=== PATIENT | female | born 1955 | race Caucasian/White ===

== ENCOUNTER 2019-10-12 16:10 | Emergency (ER) | payer MEDICARE, SELFPAY ==
--- NOTE | ~2019-10-12 | XR_ITS ---
EXAMINATION: XR finger 5th RT min 2V EXAM DATE: 10/12/2019 16:40 INDICATION: Injury 2 weeks ago, persistent right 5th digit pain. TECHNIQUE: Right 5th finger frontal, lateral and oblique projections obtained and reviewed. There is no prior study for comparison. FINDINGS: There is an avulsed right 5th distal phalangeal dorsal plate with a few millimeters of dis traction, fracture fragment is on the proximal aspect of the distal interphalangeal joint and there i s flexion at the joint, evidence of extensor mechanism disruption. Closed, posttraumatic finding. IMPRESSION: Acute right 5th distal phalangeal dorsal plate avulsion, extensor mechanism disruption. Reviewed, dictated and finalized at location A.
[2019-10-12 16:30] VITALS: BP 149/75; PULSE 95; RESP 18; TEMP 36.7; O2SAT 96
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
== END 2019-10-12 17:22 | disposition home or self-care (01) ==
PROVIDERS: Emergency Provider Nurse Practitioner Family; PCP Physician Assistant
DX: S62.666A Nondisplaced fracture of distal phalanx of right little finger, initial encounter for closed fracture (principal); J45.909 Unspecified asthma, uncomplicated; Z87.891 Personal history of nicotine dependence; X58.XXXA Exposure to other specified factors, initial encounter
CPT/HCPCS: 29130; 73140; 99214; G0463

== ENCOUNTER 2020-04-13 09:49 | Outpatient (CLI) | payer MEDICARE, SELFPAY ==
--- NOTE | ~2020-04-13 | MM_ITS ---
EXAMINATION: MM screening ingrid BI w avtar HISTORY: Screening mammogram TECHNIQUE: Craniocaudal and mediolateral oblique 3-D tomosynthesis images were obtained and synthetic 2-D images were generated. CAD analysis was submitted and interpreted. COMPARISON: 03/28/2019, 03/22/2018, 03/05/2016 bilateral digital screening mammogram examinations BREAST PARENCHYMAL COMPOSITION: There are scattered areas of fibroglandular density. FINDINGS: Occasional bilateral benign circumscribed low-density opacity is consistent with benign int ramammary lymph nodes, stable since prior examinations occasional bilateral benign calcifications. Th ere is no evidence of suspicious mass, calcification, or architectural distortion to suggest malignan cy in either breast. There has been no suspicious interval change. IMPRESSION: 1. No mammographic evidence of malignancy. 2. Recommend routine screening mammography in one year. BI-RADS Category 2: Benign finding(s). Reviewed, dictated and finalized at location A. OR OSTEOPATHIC
== END 2020-04-13 09:50 | disposition home or self-care (01) ==
LOC: ANHIMG 09:53
PROVIDERS: PCP Physician Assistant; Visit Provider Obstetrics & Gynecology
DX: Z12.31 Encounter for screening mammogram for malignant neoplasm of breast (principal)
CPT/HCPCS: 77063; 77067

== ENCOUNTER 2021-05-01 08:42 | Outpatient (CLI) | payer MEDICARE, SELFPAY ==
--- NOTE | ~2021-05-01 | MM_ITS ---
EXAMINATION: MM screening ingrid BI w avtar HISTORY: Screening mammogram TECHNIQUE: Craniocaudal and mediolateral oblique 3-D tomosynthesis images were obtained and synthetic 2-D images were generated. CAD analysis was submitted and interpreted. COMPARISON: April 13, 2020, March 28, 2019, March 22, 2018 bilateral screening mammogram examin ations BREAST PARENCHYMAL COMPOSITION: The breasts are almost entirely fatty. FINDINGS: Stable benign appearing intramammary lymph nodes. There is no evidence of suspicious mass, calcification, or architectural distortion to suggest malignancy in either breast. There has been no suspicious interval change. IMPRESSION: 1. No mammographic evidence of malignancy. 2. Recommend routine screening mammography in one year. BI-RADS Category 1: Negative Reviewed, dictated and finalized at location A. GER SITE
== END 2021-05-01 08:43 | disposition home or self-care (01) ==
LOC: ANHIMG 08:44
PROVIDERS: PCP Physician Assistant; Visit Provider Obstetrics & Gynecology
DX: Z12.31 Encounter for screening mammogram for malignant neoplasm of breast (principal)
CPT/HCPCS: 77063; 77067

== ENCOUNTER 2021-07-14 11:40 | Emergency (ER) | payer MEDICARE, SELFPAY ==
--- NOTE | ~2021-07-14 | XR_ITS ---
EXAMINATION: XR foot RT min 3V DATE: 07/14/2021 11:57 INDICATION: Right foot pain TECHNIQUE: Dorsoplantar, lateral, and 2 oblique views of the right foot were obtained. COMPARISON: None. FINDINGS: There is soft tissue swelling of the fifth toe. A tiny heterotopic ossification is seen pro jecting medial to the proximal interphalangeal joint. There is mild osteoarthritis of many interphala ngeal joints. Posterior and plantar calcaneal enthesophytes are noted. IMPRESSION: 1. Soft tissue swelling of the fifth toe with tiny heterotopic ossification near the proximal interph alangeal joint, possible small chip fracture. Reviewed, dictated and finalized at location A. IMPRESSION: 1. Soft tissue swelling of the fifth toe with tiny heterotopic ossification philip r the proximal interphalangeal joint, possible small chip fracture.
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
[2021-07-14 11:47] VITALS: BP 132/101; PULSE 102; RESP 16; TEMP 36.9; O2SAT 99
== END 2021-07-14 12:25 | disposition home or self-care (01) ==
PROVIDERS: Emergency Provider Nurse Practitioner Family; PCP Physician Assistant
DX: S92.511A Displaced fracture of proximal phalanx of right lesser toe(s), initial encounter for closed fracture (principal); Z87.891 Personal history of nicotine dependence; W23.0XXA Caught, crushed, jammed, or pinched between moving objects, initial encounter; Y93.55 Activity, bike riding
CPT/HCPCS: 73630; 99214; G0463

== ENCOUNTER 2021-07-25 12:32 | Emergency (ER) | payer MEDICARE, SELFPAY ==
[2021-07-25 12:43] VITALS: BP 153/89; PULSE 88; RESP 16; TEMP 37.6; O2SAT 97
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
== END 2021-07-25 13:04 | disposition home or self-care (01) ==
PROVIDERS: Emergency Provider Nurse Practitioner Family; PCP Physician Assistant
DX: M85.671 Other cyst of bone, right ankle and foot (principal); Z87.891 Personal history of nicotine dependence; J45.909 Unspecified asthma, uncomplicated; Z90.89 Acquired absence of other organs
CPT/HCPCS: 99212; G0463

== ENCOUNTER 2021-10-02 08:42 | Outpatient (CLI) | payer MEDICARE, SELFPAY ==
--- NOTE | ~2021-10-02 | CT_ITS ---
EXAMINATION: CTA chest PE protocol DATE: 10/02/2021 09:21 INDICATION: Shortness of breath TECHNIQUE: Computed tomography angiography (CTA) of the chest was performed with 100 mL Omnipaque-350 intravenous contrast timed to evaluate the pulmonary arteries. Coronal maximum intensity projection 3D-reconstructions were created by the technologist. The dose-length product (DLP) was 818.81 mGy-cm. Automated exposure control and iterative reconstruction technique were employed. COMPARISON: 03/19/2018 FINDINGS: The pulmonary arteries are well-opacified. No pulmonary embolism is identified. There is mi ld atelectasis of the right middle lobe and lingula and dependently in the lower lobes. No pleural ef fusion or pneumothorax. No pathologically enlarged thoracic lymph nodes are identified. The heart siz e is normal. There are bridging osteophytes at multiple levels in the spine, consistent with diffuse idiopathic skeletal hyperostosis (DISH). IMPRESSION: 1. No pulmonary embolus identified. Mild atelectasis. Reviewed, dictated and finalized at location B.
[2021-10-02 09:13] LABS: Estimated Glomerular Filt Rate > 60
== END 2021-10-02 08:43 | disposition home or self-care (01) ==
PROVIDERS: PCP Physician Assistant; Visit Provider Physician Assistant
DX: R06.00 Dyspnea, unspecified (principal); J98.11 Atelectasis
CPT/HCPCS: 71275; Q9967

== ENCOUNTER 2022-06-18 07:50 | Outpatient (CLI) | payer MEDICARE, SELFPAY ==
--- NOTE | ~2022-06-18 | MM_ITS ---
EXAMINATION: MM screening ingrid BI w avtar HISTORY: Screening mammogram TECHNIQUE: Craniocaudal and mediolateral oblique 3-D tomosynthesis images were obtained and synthetic 2-D images were generated. CAD analysis was submitted and interpreted. COMPARISON: 05/01/2021, 04/13/2020, 03/28/2019 BREAST PARENCHYMAL COMPOSITION:The breasts are almost entirely fatty FINDINGS: Small bilateral intramammary lymph nodes are stable from prior exams. No suspicious mass, c alcification, or architectural distortion are identified in either breast to suggest malignancy. Ther e has been no suspicious interval change. IMPRESSION: No mammographic evidence of malignancy. Recommend routine screening mammography in one year. BI-RADS Category 2: Benign finding(s). Reviewed, dictated and finalized at location M.
== END 2022-06-18 07:51 | disposition home or self-care (01) ==
LOC: ANHIMG 07:53
PROVIDERS: PCP Physician Assistant; Visit Provider Obstetrics & Gynecology
DX: Z12.31 Encounter for screening mammogram for malignant neoplasm of breast (principal)
CPT/HCPCS: 77063; 77067

== ENCOUNTER → 2022-11-07 13:35 | Outpatient (CLI) | payer MEDICARE, SELFPAY ==
--- NOTE | ~2022-11-07 | CT_ITS ---
EXAMINATION: CT lung screening DATE: 11/07/2022 13:53 INDICATION: Personal history of nicotine dependence, prior smoker with 20 pack year history TECHNIQUE: Computed tomography (CT) of the chest was performed without intravenous contrast. The dose -length product (DLP) was 286.14 mGy-cm. Automated exposure control and iterative reconstruction tech [employer] were employed. COMPARISON: 03/19/2018 FINDINGS: There is mild emphysema. The lungs are free of acute opacities. No suspicious pulmonary nod ules are identified. There is mild atelectasis of the lingula and right middle lobe. No pleural effus ion or pneumothorax. No pathologically enlarged thoracic lymph nodes are identified. The heart size i s normal. There are bridging osteophytes at multiple levels in the spine, consistent with diffuse idi opathic skeletal hyperostosis (DISH). There is a small sliding hiatal hernia. IMPRESSION: 1. Lung-RADS category 1: Negative. Continue annual screening with noncontrast low-dose chest CT in 12 months. Reviewed, dictated and finalized at location B. IMPRESSION: 1. Lung-RADS category 1: Negative. Continue annual screening with noncontrast l ow-dose chest CT in 12 months.
== END ==
PROVIDERS: PCP Physician Assistant; Visit Provider Physician Assistant
DX: Z12.2 Encounter for screening for malignant neoplasm of respiratory organs (principal); Z87.891 Personal history of nicotine dependence
CPT/HCPCS: 71271

== ENCOUNTER 2023-05-25 10:56 | Emergency (ER) | payer MEDICARE, SELFPAY ==
--- NOTE | ~2023-05-25 | XR_ITS ---
Left foot Technique: AP, oblique, and lateral views were obtained. Clinical History: Bruising Findings: No acute fracture or dislocation is seen. Osseous alignment is anatomic. Joint spaces are p reserved without erosive or degenerative change. Soft tissues are unremarkable. Impression: Unremarkable left foot radiographs. Reviewed, dictated and finalized at [facility]. Impression: Unremarkable left foot radiographs.
--- NOTE | 2023-05-25 11:07 | ED.LOWEXIN ---
HPI - Extremity Injury (Lower) General Chief Complaint: Extremity Problem,Nontraumatic Stated Complaint: left foot/ankle/leg swollen Time Seen by Provider: 05/25/23 11:22 Source: patient and RN notes reviewed Mode of arrival: ambulatory Limitations: no limitations History of Present Illness HPI Narrative: 68 year old female presents concern for left ankle swelling, bruising. She denies any known injury or trauma. She reports she noticed swelling today when she was getting a pedicure. She denies any calf pain, swelling, redness, warmth. She denies pain at rest or with weight-bearing MD complaint: other (ankle swelling) Related Data Home Medications Medication Instructions Recorded Confirmed ipratropium 20 mcg-albuterol 100 1 puff inhalation BID 10/12/19 05/25/23 mcg/actuation mist for inhalation (Combivent Respimat) lovastatin 40 mg tablet 40 mg PO DAILY 10/12/19 05/25/23 budesonide-formoterol HFA 160 1 inh inhalation ONCE 11/13/21 05/25/23 mcg-4.5 mcg/actuation aerosol inhaler (Symbicort) calcium carb 300 mg-D3 20 mcg-mag 1 tablet PO DAILY 11/13/21 05/25/23 ox 25 mg-copy preparer 0.5 [id number] tablet (Caltrate-D3 Plus Minerals) Allergies Allergy/AdvReac Type Severity Reaction Status Date / Time No Known Allergies Allergy Unknown Uncoded 05/25/23 11:21 Review of Systems Review of Systems: CONSTITUTIONAL: Denies malaise, chills, sweats, or fever. CARDIOVASCULAR: Denies chest pain, palpitations, or edema. RESPIRATORY: Denies cough or dyspnea. SKIN: Denies rash or itching, redness MUSCULOSKELETAL: Reports left ankle swelling and bruising NEUROLOGIC: Denies numbness, weakness All systems reviewed & are unremarkable except as noted in HPI and below PMFSH Past Medical History Medical History Asthma Elevated TSH History of vaginal delivery x 2 Surgical History Surgical History H/O bilateral salpingectomy H/O: hysterectomy History of laparoscopy Hx of LASIK S/P partial thyroidectomy S/P partial thyroidectomy Family History Family History Sibling Family history of multiple sclerosis Father Patient's father is Social History Social History Smoking status: Former smoker Second hand tobacco smoke exposure: No Smoking end date: 04/10/12 Alcohol intake: current Lack of Transportation: No Lack of Food: Never True Current Housing: I Have Housing Concerned About Future Housing: No Difficulty Paying Gas/Electric Bills: No Difficulty Paying for Meds: No Currently Unemployed: No Education: Master's Degree or Higher Difficulty w/ Childcare or Family Care: No Comments At time of signature, agree with nursing past medical, surgical, social and family history. There is no relevant family history pertinent to the presenting complaint Exam Narrative: GENERAL: Well-appearing, well-nourished, and in no acute distress. HEAD: Normocephalic, atraumatic. EYES: PERRLA, conjunctivae clear NECK: Supple. CHEST: Speaks in full sentences. No respiratory distress. HEART: Regular rate and rhythm. Normal and equal peripheral pulses. EXTREMITIES: Left ankle, foot, digits have grossly normal strength and sensation, normal range of motion. 1+ pitting edema to the lateral ankle and foot, dependent ecchymosis noted to the lateral foot. 5/5 strength with ankle in digit flexion and extension. Normal sensation with sensitivity to light touch and pain. Malleolar tenderness. No open wounds, no skin tenting, no devitalized tissue or atrophy, no trophic changes, no obvious deformity, alignment normal, nearby joints and structures intact. Distal pulses palpable and equal bilaterally, skin warm, dry, pink. Capillary refill less than 3 seconds. SKIN: Warm, dry, n
[2023-05-25 11:10] VITALS: BP 152/82; PULSE 71; RESP 16; TEMP 37.3; O2SAT 98
[2023-05-25 11:25] VITALS: BP 152/82; PULSE 71; RESP 16; TEMP 37.3; O2SAT 98
== END 2023-05-25 12:09 | disposition short-term general hospital (02) ==
PROVIDERS: Emergency Provider Nurse Practitioner; PCP Physician Assistant
DX: R22.42 Localized swelling, mass and lump, left lower limb (principal); Z87.891 Personal history of nicotine dependence; J45.909 Unspecified asthma, uncomplicated
CPT/HCPCS: 73630; 99213; G0463

== ENCOUNTER 2023-05-25 12:18 | Emergency (ER) | payer MEDICARE, SELFPAY ==
--- NOTE | ~2023-05-25 | US_ITS ---
EXAMINATION: US venous doppler [facility] DATE: 05/25/2023 14:17 INDICATION: Left lower limb swelling TECHNIQUE: Grayscale ultrasound images without and with compression and Doppler ultrasound images of the left lower extremity veins were obtained. COMPARISON: None. FINDINGS: The visualized portions of left common femoral vein, profunda (deep) femoral vein, femoral vein, popl iteal vein, peroneal veins, posterior tibial veins, gastrocnemius vein and greater saphenous vein out flow are patent. IMPRESSION: 1. No deep venous thrombosis in the left lower limb. Reviewed, dictated and finalized at location A.
[2023-05-25 12:22] VITALS: BP 150/80; PULSE 79; RESP 18; TEMP 36.4; O2SAT 97
--- NOTE | 2023-05-25 14:46 | ED.EXTPRO ---
HPI - Extremity Problem General Chief complaint: Extremity Problem,Nontraumatic Stated complaint: r/o dvt Time Seen by Provider: 05/25/23 14:11 History of Present Illness HPI Narrative: Patient is a 68-year-old female who presents ER for concern of DVT in the left lower extremity. She went to get a pedicure today and noticed her left foot and leg was more swollen than the right side and she had new bruising below the lateral malleolus. She had x-rays performed urgent care that were negative and was referred here. Patient has no chest pain or shortness of breath. No known trauma despite the bruising. She was at [place] and may have taken more salt. She also helped a lady who tripped using her cane but does not remember injuring herself. Related Data Home Medications Medication Instructions Recorded Confirmed ipratropium 20 mcg-albuterol 100 1 puff inhalation BID 10/12/19 05/25/23 mcg/actuation mist for inhalation (Combivent Respimat) lovastatin 40 mg tablet 40 mg PO DAILY 10/12/19 05/25/23 budesonide-formoterol HFA 160 1 inh inhalation ONCE 11/13/21 05/25/23 mcg-4.5 mcg/actuation aerosol inhaler (Symbicort) calcium carb 300 mg-D3 20 mcg-mag 1 tablet PO DAILY 11/13/21 05/25/23 ox 25 mg-gyroscopic instrument mechanic 0.5 cm-mlyh-zdce tablet (Caltrate-D3 Plus Minerals) Allergies Allergy/AdvReac Type Severity Reaction Status Date / Time No Known Allergies Allergy Unknown Uncoded 05/25/23 14:14 Review of Systems Constitutional: Constitutional: Reports no additional constitutional complaints Cardiovascular: Cardiovascular: Reports no additional cardiovascular complaints Respiratory: Respiratory: Reports no additional respiratory complaints Musculoskeletal: Musculoskeletal: Denies arthralgias and Denies joint swelling Comments: ankle bruising PMFSH Past Medical History Medical History Asthma Elevated TSH History of vaginal delivery x 2 Surgical History Surgical History H/O bilateral salpingectomy H/O: hysterectomy History of laparoscopy Hx of LASIK S/P partial thyroidectomy S/P partial thyroidectomy Family History Family History Sibling Family history of multiple sclerosis Father Patient's father is Social History Social History Smoking status: Former smoker Second hand tobacco smoke exposure: No Smoking end date: 04/10/12 Alcohol intake: current Lack of Transportation: No Lack of Food: Never True Current Housing: I Have Housing Concerned About Future Housing: No Difficulty Paying Gas/Electric Bills: No Difficulty Paying for Meds: No Currently Unemployed: No Education: Master's Degree or Higher Difficulty w/ Childcare or Family Care: No Exam Narrative: GENERAL: Well-appearing, well-nourished, and in no acute distress. HEAD: Normocephalic, atraumatic. ENT: Mucous membranes moist. CHEST: Clear to auscultation. No respiratory distress. HEART: Regular rate and rhythm. Normal peripheral pulses. EXTREMITIES: Normal range of motion. No edema. No left ankle tenderness referred denies. SKIN: Warm, dry, no rash. Mild bruising inferior to the left lateral malleolus without tenderness. NEURO: Alert and oriented x3. PSYCH: Normal mood and affect. Course Course Emergency Course: Patient informed of ultrasound results. Discharge home with recommendations of RICE treatment. Vital Signs Vital signs: Vital Signs Temperature 97.6 F 05/25/23 12:22 Pulse Rate 79 05/25/23 12:22 Respiratory Rate 18 05/25/23 12:22 Blood Pressure 150/80 H 05/25/23 12:22 Pulse Oximetry 97 05/25/23 12:22 Temperature 97.6 F 05/25/23 12:22 Pulse Rate 79 05/25/23 12:22 Respiratory Rate
[2023-05-25 15:10] VITALS: BP 148/74; PULSE 74; RESP 18; TEMP 36.1; O2SAT 98
== END 2023-05-25 15:11 | disposition home or self-care (01) ==
PROVIDERS: Emergency Provider Emergency Medicine; PCP Physician Assistant
DX: M79.81 Nontraumatic hematoma of soft tissue (principal); J45.909 Unspecified asthma, uncomplicated; E89.0 Postprocedural hypothyroidism; Z90.79 Acquired absence of other genital organ(s); Z90.710 Acquired absence of both cervix and uterus; Z87.891 Personal history of nicotine dependence
CPT/HCPCS: 73630; 93971; 99284

== ENCOUNTER 2023-06-24 16:09 | Outpatient (CLI) | payer MEDICARE, SELFPAY ==
--- NOTE | ~2023-06-24 | MM_ITS ---
EXAMINATION: MM screening ingrid BI w avtar HISTORY: Screening TECHNIQUE: Craniocaudal and mediolateral oblique 3-D tomosynthesis images were obtained and synthetic 2-D images were generated. CAD analysis was submitted and interpreted. COMPARISON: Comparison to multiple prior studies sequentially, with oldest reviewed study dated 05/01. BREAST PARENCHYMAL COMPOSITION: Not dense: There are scattered areas of fibroglandular density. FINDINGS: There is no evidence of suspicious mass, calcification, or architectural distortion to sugg est malignancy in either breast. There has been no suspicious interval change. IMPRESSION: 1. No mammographic evidence of malignancy. 2. Recommend routine screening mammography in one year. BI-RADS Category 1: Negative Reviewed, dictated and finalized at location B.
== END 2023-06-24 16:10 | disposition home or self-care (01) ==
LOC: ANHIMG 16:11
PROVIDERS: PCP Physician Assistant; Visit Provider Obstetrics & Gynecology
DX: Z12.31 Encounter for screening mammogram for malignant neoplasm of breast (principal)
CPT/HCPCS: 77063; 77067

== ENCOUNTER 2023-09-22 07:32 | Outpatient (CLI) | payer MEDICARE, SELFPAY ==
--- NOTE | ~2023-09-22 | MR_ITS ---
Procedure: MR orbits face neck wo/w con Ordering provider: Queta Barnard, ODALIS History: . VISUAL DISTURBANCE . Comparison: CT head performed yesterday. Technique: MRI brain with contrast. MRI orbits utilizing thin slice axial and sagittal pre- and post contrast images per protocol. 20 mL MultiHance was given IV. FINDINGS: BRAIN: BONES: Normal. MAJOR INTRACRANIAL VESSELS: Normal flow void. CRANIAL NERVES VII AND VIII COMPLEXES: Grossly unremarkable. BRAIN PARENCHYMA AND CSF SPACES: The craniocervical junction and midline structures are normal. The b rainstem and cerebellum are normal. There is no evidence for acute or chronic intracranial hemorrhage . No extra axial fluid collections,. PARANASAL SINUSES: Bilateral ethmoid sinus disease. MASTOIDS: Bright signal in the medial aspect of the left mastoid air cells. SUPERFICIAL/SURROUNDING SOFT TISSUES: Normal. ORBITS: The optic globes are normal. The optic nerves and ocular muscles are normal in signal without abnormal enhancement. The orbital fat is normal. No orbital mass or abnormal enhancement. The optic nerve was not well demonstrated on the axial images on the T2-weighted images and in the T1 postcontr ast images most likely technical. IMPRESSION: No definite abnormality seen in the visualized brain and orbits. No abnormal enhancement seen in the optic nerves. Reviewed, dictated and finalized at location A. IMPRESSION: No definite abnormality seen in the visualized brain and orbits. No abnormal en hancement seen in the optic nerves.
--- NOTE | ~2023-09-22 | US_ITS ---
EXAMINATION: US carotid duplex BI DATE: 09/22/2023 09:32 INDICATION: Visual disturbance TECHNIQUE: Grayscale, color Doppler, and pulsed Doppler images of the cervical carotid arteries were obtained. The degree of vessel stenosis is placed in one of the following categories: normal, <50%, 5 0-69%, >=70% but less than near-occlusion, near-occlusion, or total occlusion. Note that percent sten osis relative to normal distal artery lumen diameter is indirectly measured from velocity measurement s as described by Houston, et al. Radiology 2003; 229:[id number]. COMPARISON: None. FINDINGS: RIGHT: The right common carotid artery (CCA) peak systolic velocity (PSV) is 50 cm/s. The right internal car otid artery (ICA) PSV is 49 cm/s. The right ICA end-diastolic velocity (EDV) is 12 cm/s. The right IC A/CCA PSV ratio is 1.0. Grayscale and color Doppler images demonstrate no evident atherosclerotic reji que or stenosis in the ICA. The external carotid artery (ECA) PSV is 74 cm/s. There is antegrade flow in the right vertebral artery. LEFT: The left CCA PSV is 58 cm/s. The left ICA PSV is 61 cm/s. The left ICA EDV is 25 cm/s. The left ICA/C CA PSV ratio is 1.1. Grayscale and color Doppler images demonstrate no evident plaque or stenosis in the ICA. The ECA PSV is 69 cm/s. There is antegrade flow in the left vertebral artery. IMPRESSION: 1. No evident atherosclerotic plaque or stenosis in the right internal carotid artery. 2. No evident atherosclerotic plaque or stenosis in the left internal carotid artery. Reviewed, dictated and finalized at location A. IMPRESSION: 1. No evident atherosclerotic plaque or stenosis in the right internal carotid artery. 2. No evident atherosclerotic plaque or stenosis in the left internal carotid a rtery.
--- NOTE | ~2023-09-22 | MR_ITS ---
MR brain/brain stem wo/w con Ordering provider: Queta Barnard, ODALIS History: . VISUAL DISTURBANCE . Comparison: None. Technique: MRI brain and internal auditory canals with and without contrast with thin slice coronal a nd sagittal images through the internal auditory canals was performed per protocol. 20 mL MultiHance was given IV. FINDINGS: BONES: Normal. CRANIOCERVICAL JUNCTION: normal. PITUITARY: Normal. MAJOR INTRACRANIAL VESSELS: Normal flow void. OPTIC NERVES AND CRANIAL NERVES VII AND VIII COMPLEXES: Grossly normal. BRAIN PARENCHYMA AND CSF SPACES: Mild nonspecific T2 white matter hyperintensities are seen in a vikram ateral periventricular and deep white matter distribution which are likely related to chronic ischemi c small vessel disease. Mild diffuse cortical atrophy. The brainstem and cerebellum are normal. No ac dianne or chronic intracranial hemorrhage. No extra axial fluid collections. Diffusion weighted and ADC mapping images reveal no recent ischemia. No midline shift or mass effect. No abnormal contrast enhan cement. PARANASAL SINUSES: Bilateral ethmoid sinus disease. SUPERFICIAL/SURROUNDING SOFT TISSUES: Normal. IACs: --MASTOIDS: Focal area of bright signal in the left mastoid air cells medially is seen which shows bright signal on T2 and dark signal on T1-weighted images with minimal postcontrast enhancement most likely an enhancing fluid which may be in the vestibular aqueduct area. Follow-up advised. --EXTERNAL AUDITORY CANALS AND MIDDLE EARS: Normal. --COCHLEA AND SEMICIRCULAR CANALS: Normal bilaterally. --EUSTACHIAN TUBES/FOSSAE OF ROSENMUELLER: Normal. --ABNORMAL ENHANCEMENT: None. IMPRESSION: 1. Few scattered T2 and FLAIR hyperintense signal areas which may be due to deep white matter ischem ic changes. 2. No acute intracranial abnormality. 3. Normal IAC bilaterally. 4. Small area of bright signal on T2-weighted images with dark signal on T1-weighted images and with postcontrast enhancement seen in the left mastoid air cells which may be related to the vestibular a queduct. Follow-up advised. Reviewed, dictated and finalized at location A. IMPRESSION: 1. Few scattered T2 and FLAIR hyperintense signal areas which may be due to de ep white matter ischemic changes. 2. No acute intracranial abnormality. 3. Normal IAC bilaterally. 4. Small area of bright signal on T2-weighted images with dark signal on T1-we ighted images and with postcontrast enhancement seen in the left mastoid air ce lls which may be related to the vestibular aqueduct. Follow-up advised.
== END 2023-09-22 07:33 | disposition home or self-care (01) ==
PROVIDERS: PCP Physician Assistant; Visit Provider Physician Assistant
DX: H53.9 Unspecified visual disturbance (principal)
CPT/HCPCS: 70543; 70553; 93880; A9577

== ENCOUNTER 2023-11-10 08:34 | Outpatient (CLI) | payer MEDICARE, SELFPAY ==
--- NOTE | ~2023-11-10 | CT_ITS ---
CT Scan of the Chest without Contrast: Clinical Indication: Lung cancer screening, nicotine dependence Technique: Contiguous sections were acquired throughout the chest without intravenous contrast. Dose reduction technique was used on this scan by utilizing automated exposure control and iterative recon struction technique. The dose-length product (DLP) was 223.12 mGy-cm. COMPARISON: 11/07/2022 Findings: There is no evidence of any significant mediastinal, hilar or axillary lymphadenopathy. The mediastin al soft tissues appear normal. There is no evidence of pleural or pericardial effusion. The lungs are clear, aside from mild right middle lobe atelectatic change. Images through the upper abdomen reveal no abnormalities. Impression: Lung RADS 1: Negative. 12 month follow-up screening CT advised. Reviewed, dictated and finalized at location . Impression: Lung RADS 1: Negative. 12 month follow-up screening CT advised.
== END 2023-11-10 08:35 | disposition home or self-care (01) ==
PROVIDERS: PCP Physician Assistant; Visit Provider Physician Assistant
DX: Z12.2 Encounter for screening for malignant neoplasm of respiratory organs (principal); Z87.891 Personal history of nicotine dependence
CPT/HCPCS: 71271

== ENCOUNTER 2024-03-11 11:27 | Emergency (ER) | payer MEDICARE, SELFPAY ==
[2024-03-11 11:37] VITALS: BP 140/70; PULSE 78; RESP 16; TEMP 36.3; O2SAT 98
--- NOTE | 2024-03-11 11:37 | ED_ITS ---
HPI - URI/Sore Throat General Chief Complaint: Upper Respiratory Infection Stated Complaint: sore throat/ear pain Time Seen by Provider: 03/11/24 12:26 Source: patient, RN notes reviewed and old records reviewed Mode of arrival: ambulatory Limitations: no limitations History of Present Illness HPI Narrative: Patient presents with complaints of runny nose and sore throat. She reports that symptoms have been present for 3 or 4 days, started with sore throat. Says that this has just got worse each day. This morning awakened with right ear pain. She denies any fever, chills, sweats. Denies any injury or trauma. Has been taking obps-uhs-hkpdgal medications for her symptoms with moderate relief. Related Data Home Medications ?Medication ?Instructions ?Recorded ?Confirmed ?Last Taken ?Type ipratropium 20 mcg-albuterol 100 1 puff inhalation BID 10/12/19 05/25/23 Unknown History mcg/actuation mist for inhalation (Combivent Respimat) lovastatin 40 mg tablet 40 mg PO DAILY 10/12/19 05/25/23 Unknown History budesonide-formoterol HFA 160 1 inh inhalation ONCE 11/13/21 05/25/23 Unknown History mcg-4.5 mcg/actuation aerosol inhaler (Symbicort) calcium 300 mg-D3 20 mcg-magnesium 1 tablet PO DAILY 11/13/21 05/25/23 Unknown History 25 mg-coppr 0.5 so-flxc-llkj tablet (Caltrate-D3 Plus Minerals) Allergies Allergy/AdvReac Type Severity Reaction Status Date / Time No Known Allergies Allergy Unknown Uncoded 03/11/24 11:40 Review of Systems Review of Systems: All systems reviewed & are unremarkable except as noted in HPI and below Constitutional: Constitutional: Reports no additional constitutional complaints ENT: Reports system reviewed and no additional complaints, except as documented, Reports otalgia, Reports nasal discharge and Reports sore throat Cardiovascular: Cardiovascular: Reports no additional cardiovascular complaints Respiratory: Respiratory: Reports no additional respiratory complaints Gastrointestinal: Gastrointestinal: Reports no additional gastrointestinal complaints PMFSH Past Medical History Medical History Asthma Elevated TSH History of vaginal delivery x 2 Surgical History Surgical History S/P partial thyroidectomy S/P partial thyroidectomy History of laparoscopy H/O bilateral salpingectomy Hx of LASIK H/O: hysterectomy Family History Family History Sibling Family history of multiple sclerosis Father Patient's father is Social History Social History Smoking status: Former smoker Second hand tobacco smoke exposure: No Smoking end date: 04/10/12 Alcohol intake: current Lack of Transportation: No Lack of Food: Never True Current Housing: I Have Housing Concerned About Future Housing: No Difficulty Paying Gas/Electric Bills: No Difficulty Paying for Meds: No Currently Unemployed: No Education: Master's Degree or Higher Difficulty w/ Childcare or Family Care: No Comments At the time of my signature, I reviewed and agree with the nursing past medical, surgical, social, and family history. There is no relevant family history pertinent to the patient complaint. Exam Const: General: cooperative, no acute distress, alert and awake Orientation/consciousness: oriented to person, oriented to place and oriented to time HENMT: Head: normal to inspection Ears: TM normal on the left and TM abnormal erythematous and with loss of landmarks Mouth: Yes moist mucous membranes Throat: posterior oropharynx abnormal erythema Resp: Effort & Inspection: normal respiratory effort and able to speak in complete sentences Auscultation: clear to auscultation bilaterally, no crackles, no rales, no rhonchi and no wheezes Cardio: Palpation: normal PMI Rate: regular rate Rhythm: regular rhythm Heart sounds: S1 normal heart sound present and S2 normal heart sound present Neuro: General: oriented to person, oriented to place and oriented to time Cranial nerves: Yes CN's II-XII intact bilaterally Psych: Appearance: grossly normal Thought process: Normal thought process present Insight: Good insight present (Psych) Judgement: Good judgement present (Psych) Course Course Level of Care: Express Care Visit Vital Signs Vital signs: Reviewed MDM - URI/Sore Throat MDM Narrative Medical decision making narrative: Negative strep, culture pending. Exam consistent with otitis media, treat with p.o. antibiotics. Patient is nontoxic appearing, stable for discharge home. Discharge instructions reviewed with patient, as well as provided in writing per nursing staff. The instructions also include specific and strict return/GO TO THE ER as well as f/u information. All questions have been answered, and the patient deny any further questions with discharge and discharge plan. Some parts of this dictation were generated by voice recognition software and may contain typographical and/or grammatical inaccuracies. Differential Diagnosis Differential diagnosis: Likely upper respiratory infection, otitis media, sinusitis, viral infection, bronchitis and influenza Medical Records Attestation: I reviewed the patient's medical records. Lab Data Attestation: I reviewed the patient's lab results. Discharge Plan Discharge Clinical Impression: Otitis media Qualifiers: Otitis media type: suppurative Chronicity: acute Laterality: right Recurrence: not specified as recurrent Spontaneous tympanic membrane rupture: without spontaneous rupture Qualified Code(s): H66.001 - Acute suppurative otitis media without spontaneous rupture of ear drum, right ear Patient Disposition: Home, Self-Care Condition: Stable Instructions: Antibiotic Form, Ear Infection (ED) Additional Instructions: Take medication as prescribed. Follow with primary care provider. Emergency department for new or worse symptoms Patient Language: Citizen Of [place] Prescriptions: New amoxicillin-pot clavulanate 875-125 mg tablet 1 tablet PO Q12H Qty: 20 0RF No Action lovastatin 40 mg tablet 40 mg PO DAILY Combivent Respimat 20-100 mcg/actuation mist 1 puff INHALATION BID budesonide-formoterol [Symbicort] 160-4.5 mcg/actuation HFA aerosol inhaler 1 inh inhalation ONCE Caltrate-D3 Plus Minerals 300 mg-800 unit -25 mg-0.5 mg tablet 1 tablet PO DAILY Follow-up/Referrals: Evon,ODALIS Birch [Primary Care Provider] - 1 Week Time of Disposition: 12:35
== END 2024-03-11 12:40 | disposition home or self-care (01) ==
PROVIDERS: Emergency Provider Nurse Practitioner Family; PCP Physician Assistant
DX: H66.001 Acute suppurative otitis media without spontaneous rupture of ear drum, right ear (principal); Z87.891 Personal history of nicotine dependence; J45.909 Unspecified asthma, uncomplicated; Z90.89 Acquired absence of other organs
CPT/HCPCS: 87081; 99213; G0463

== ENCOUNTER 2024-07-25 08:02 | Outpatient (CLI) | payer MEDICARE, SELFPAY ==
--- NOTE | ~2024-07-25 | MM_ITS ---
EXAMINATION: MM screening ingrid BI w avtar HISTORY: Screening TECHNIQUE: Craniocaudal and mediolateral oblique 3-D tomosynthesis images were obtained and synthetic 2-D images were generated. CAD analysis was submitted and interpreted. COMPARISON: Comparison to multiple prior studies sequentially, with oldest reviewed study dated 03/22. BREAST PARENCHYMAL COMPOSITION: Not Dense: The breasts are almost entirely fatty. FINDINGS: There is no evidence of suspicious mass, calcification, or architectural distortion to sugg est malignancy in either breast. There has been no suspicious interval change. IMPRESSION: 1. No mammographic evidence of malignancy. 2. Recommend routine screening mammography in one year. BI-RADS Category 1: Negative Reviewed, dictated and finalized at location B.
--- OUTSIDE RECORDS SUMMARY | 2024-07-25 08:08 | XMS_ITS | Referral Summary ---
Author Organization [facility] [address] Address [address] [place] [address] Care Team Providers Care Saw Offbearer Name Role Phone AlonzozehraQueta Primary Care Pr ovider Allergies No known active allergies Medications omeprazole (PriLOSEC) 20 mg capsuleIndicati ons:heartburn Take 1 capsule (20 mg total) by mouth as needed 6 9 Active ipratropium-alb uterol (COMBIVENT RESPIMAT) 20-100 mcg/actuation inhalerIndicati ons:asthma Inhale 1 puff 4 (four) times a day as needed Active calcium carbonate/vitam in D3 (CALCIUM 600 + D,3, ORAL)Indication s:supplement Take 1 tablet by mouth nightly Active nystatin powder Apply 1 application topically as needed for rash Active docusate sodium (COLACE) 100 mg capsuleIndicati ons:constipatio n Take 1 capsule (100 mg total) by mouth 2 (two) times a day as needed for constipation 15 capsule 0 Active Additional Information Patient not taking.Reported on 11/24/2023 fluticasone propionate (FLONASE) 50 mcg/actuation nasal spray Administer 1 spray into each nostril daily 1 each 11 4 Active atorvastatin (LIPITOR) 40 mg tablet Take 1 tablet (40 mg total) by mouth daily Active multivitamin with iron tablet Take 1 tablet by mouth daily Active Lactobacillus rhamnosus GG (CULTURELLE) 10 billion cell capsule Take 1 capsule by mouth daily Active Active Problems Problem Noted Date Diagnosed Date Thyroid nodule 09/01/2018 Overview (04/28/2019): PROCEDURE PERFORMED 04/11/2019 [place] Left hemithyroidectomy. Social History Tobacco Use Types Packs/Day Years Used Date Smoking Tobacco: Former Cigarettes 0.5 48 1 969 - 2017 E-cigarettes Smokeless Tobacco: Never Tobacco Cessation:Counseling Given: Not Answered Comments:stopped cigarettes in 2012, e-cigarettes in 2017, per pt Alcohol Use Standard Drinks/Week Comments Yes 0 (1 standard drink = 0.6 oz pur e alcohol) AUDIT-C Answer Date Recorded Frequency of Alcohol Consumption 2-3 times a wee k 04/05/2019 Average Number of Drinks 5 or 6 020 Frequency of Binge Drinking Not on file 03/10 Comments No Sex and Gender Information Value Date Recorded Sex Assigned at Not on file Legal Sex Female 7:58 AM 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 Gender Identity Not on file Sexual Orientation Not on file Last Filed Vital Signs Vital Sign Reading Time Taken Comments Blood Pressure 115/65 04/11/2019 3:10 PM MARKET REPORTER Pulse 81 04/11/2019 3:10 PM MARKET REPORTER Temperature 36.1 C (97 F) 04/11/2019 3:40 PM MARKET REPORTER Respiratory Rate 15 04/11/2019 3:10 PM MARKET REPORTER Oxygen Saturation 96% 04/11/2019 3:10 PM MARKET REPORTER Inhaled Oxygen Concentration - - Weight 111.1 kg (245 lb) 11/06/2023 8:37 AM CDT Height 162.6 cm (5' 4 ) 11/06/2023 8:37 AM CDT Body Mass Index 42.05 11/06/2023 8:37 AM CDT Plan of Treatment Not on file Insurance [facility] MEDICARE MEDICARE ChatStat [facility] ChatStat OPEN ACCESS [facility] MEDICARE ADVANTAGE [facility] MEDICARE Care Teams Saw Offbearer Relationship Specialty Start Date End Date Queta Barnard PA PCP - General Physician Sock And Stocking Ironer 04/15/18
--- OUTSIDE RECORDS SUMMARY | 2024-07-25 08:08 | XMS_ITS | Clinical Summary ---
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 Gender Identity Not on file Sexual Orientation Not on file Plan of Treatment Health Maintenance Due Date Last Done Comments Colorectal Cancer Screening Colonoscopy (10 Years) 1953 Hepatitis C 1971 DTaP, Tdap and Td Vaccines ( 1 - Tdap) 01/22/1972 Mammogram Screening 1993 Pneumococcal Vaccine: 50+ Ye ars (1 of 1 - PCV) 2003 Zoster Vaccines (1 of 2) 2003 Dexa Scan (General) 2018 COVID-19 Vaccine (2 - 2023-2 5 season) 2023 05/14/2020 RSV Immunization or 60+ Years (1 - 1-dose 75+ series) 01/22/2028 Meningococcal B Vaccine Aged Out No l onger eligible based on patient's age to complete this topic Meningococcal Vaccine Aged Out No reyna oleg eligible based on patient's age to complete this topic RSV Immunizations Under 20 Months Aged Out No longer eligible based on patient's age to complete this topic
--- OUTSIDE RECORDS SUMMARY | 2024-07-25 08:08 | XMS_ITS | Clinical Summary ---
Author Organization [facility] [place] [address] Address [address] [place] [address] Care Team Providers Care Supervisor Paint Department Name Role Phone AlonzozehraQueta Primary [facility] Pr [...] (04/28/2019): PROCEDURE PERFORMED 04/11/2019 [place] Left hemithyroidectomy. Surgical History Surgery Date Site/Laterality Comments HYSTERECTOMY OOPHORECTOMY BLADDER AUGMENTATION ADENOIDECTOMY 1956 COLONOSCOPY 12/20/2018 SINUS SURGERY 1979's LASIK 10/02/2015 Left OS only - for distance Medical History Medical History Date Comments Asthma mild Family History Medical History Relation Name Comments Cancer Father Gallito Luna Cancer Maternal Grandfather Enrique Dwyer Diabetes Sister Jenna Chase Relation Name Status Comments Father Gallito Luna Maternal Grandfather Enrique Dwyer Sister Jenna Chase Social History Tobacco Use Types Packs/Day Years Used Date Smoking Tobacco: Former Cigarettes 0.5 48 1 969 - 2017 E-cigarettes Smokeless Tobacco: Never Tobacco Cessation:Counseling Given: Not Answered Comments:stopped cigarettes in 2012, e-cigarettes in 2016, per pt Alcohol Use Standard Drinks/Week Comments [...] on file Legal Sex Female 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 Gender Identity Not on file Sexual Orientation Not on file Obstetrics History Last Filed Vital Signs Vital Sign Reading Time Taken Comments Blood Pressure 115/65 04/11/2019 3:10 PM FILLER OPERATOR Pulse 81 04/11/2019 3:10 PM FILLER OPERATOR Temperature 36.1 C (97 F) 04/11/2019 3:40 PM FILLER OPERATOR Respiratory Rate 15 04/11/2019 3:10 PM FILLER OPERATOR Oxygen Saturation 96% 04/11/2019 3:10 PM FILLER OPERATOR Inhaled Oxygen Concentration - - Weight 111.1 kg (245 lb) 11/06/2023 8:37 AM CDT Height 162.6 cm (5' 4 ) 11/06/2023 8:37 AM CDT Body Mass Index 42.05 11/06/2023 8:37 AM CDT Plan of Treatment Health Maintenance Due Date Last Done Comments Breast Cancer Screening-Mammogram 1953 Colon Cancer Screening-Colonoscopy 1953 Depression Screening 1953 Fall Risk Assessment 1953 Hepatitis C Screening 1953 Osteoporosis Screening-Bone Density Scan 1953 Hepatitis B Screening 1971 Lung Cancer Screening 2003 Well Visit 65+ 2018 Pneumococcal vaccine 65+ (2 of 2 - PPSV23) 01/30/2021 12/05/2020, 03/22/2018 Covid-19 Vaccine (5 - 2023-2 5 season) 2023 01/22/2022, 10/09/2021, 01/16/2021, Additional history exists Influenza Vaccine (Season Ended) 2024 12/31/2022, 12/18/2021, 12/05/2020, Additional history exists DTaP/Tdap/Td Vaccine (2 - Td or Tdap) 04/07/2027 04/07/2017 Zoster Vaccine Completed 03/21/2020, 11/08, 03/09/[address] [place] [address] MEDICARE MEDICARE [employer] [facility] [employer] [facility] Skin OPEN ACCESS UHC MEDICARE ADVANTAGE AET MEDICARE Care Teams Supervisor Paint Department Relationship Specialty Start Date End Date Queta Barnard PA PCP - General Physician Medical Health Researcher 04/15/18
--- OUTSIDE RECORDS SUMMARY | 2024-07-25 08:09 | XMS_ITS | Data Portability ---
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 Role Phone QUETA MOSHER Primary Care Provider Unavailab le Assessment Encounter Date Assessment Date Assessment LastModified by Organization Details LastModified Time 04/06/2024 04/06/2024July mammogram planned at [place] Not available 04/06/2024 09:44:39 Plan of Treatment Reminders Order Date Submit Date Provider Last Modified By Organization Details Last Modified Time Details Appointments ANY 15 2024 08:00A M ALECIA Juárez Not available Not available Not available Lab CBC w/ auto diff 2024 025 [facility], [address], [place], [address], 04/07/2024 07:09:02 hepatic function panel, serum 2024 025 MONICA [facility], [address], [place], [address], 04/07/2024 07:08:59 BMP, serum or plasma 2024 025 MONICA [facility], [address], [place], [address], 04/07/2024 07:09:00 HbA1c (hemoglob in A1c), blood 2024 025 MONICA [facility], [address], [place], [address], 04/07/2024 07:09:01 TSH + free T4, serum 2024 025 MONICA [facility], [address], [place], [address], 04/07/2024 07:08:57 lipid panel, serum 2024 025 MONICA [facility], [address], [place], [address], 04/07/2024 07:08:58 erythrocy te sedimenta tion rate by westergre n method 2023 024 MONICA [facility], [address], [place], [address], 09/05/2023 08:23:27 C reactive protein, QN, serum or plasma 2023 024 MONICA [facility], [address], [place], [address], 09/05/2023 08:23:27 HbA1c (hemoglob in A1c), blood 2023 024 MONICA [facility], [address], [place], [address], 09/05/2023 08:23:26 CBC w/ auto diff 2023 024 MONICA [facility], [address], [place], [address], 09/05/2023 08:23:26 hepatic function panel, serum 2023 024 MONICA [facility] [address], [place], [address], 09/05/2023 08:23:25 BMP, serum or plasma 2023 024 MONICA [facility] [address], [place], [address], 09/05/2023 08:23:25 TSH + free T4, serum 2023 024 [place] [facility], [address], [place], [address], 09/05/2023 08:23:24 lipid panel, serum 2023 024 [place] [facility], [address], [place], [address], 09/05/2023 08:23:24 Referral otolaryng ologist referral 2024 025 [facility], [address], [place], [address], 05/27/2024 11:14:02 Procedures colonosco py procedure (PROC) [address] [facility], [address], [address], [place], [address], 04/06/2024 09:49:58 Surgeries None recorded. Imaging US, duplex, carotid artery 2023 024 [facility], [address], [place], [address], 09/22/2023 12:29:59 MRI, brain + orbits, w/wo contrast - approval info on this fax [address] [facility] [address] [facility], [address], [place], [address], 09/23/2023 11:06:16 LDCT, chest, for lung cancer screening 2023 024 [facility], [address], [place], [address], 11/10/2023 13:45:38 Medication Orders None recorded. Patient TargetsNo targets recorded. 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 Dysfunction of bilateral eustachian tubes Referring Physician: Queta Mosher, Internal Medicine, Encounter Date: 04/06/2024 Results Created Date Observation Date Name Description Value Unit Range Abnormal Flag Note LastModifiedBy Organization Detail LastModifiedTime 09/04/1909/05/2023 TSH+F REE T4 TSH 4.270 uIU/m L 0.450- 4.500 Not Available [facility] ([facility]) [address] [place], [address], 09/05/2023 08:23:24 09/04/19 24 09/05/2023 TSH+F REE T4 T4,free(dire ct) 1.15 NG/dL 0.82-1 .77 Not Available [facility] ([facility]) [address] [place], [address], 09/05/2023 08:23:24 09/04/19 24 09/05/2023 LIPID PANEL cholesterol, total 203 mg/dL 100-19 9 above high normal Not Available [facility] ([facility]) [address] [place], [address], 09/05/2023 08:23:24 09/04/19 24 09/05/2023 LIPID PANEL triglyceride s 133 mg/dL 0-149 Not Available [facility]) [address] [place], [address], 09/05/2023 08:23:24 09/04/19 24 09/05/2023 LIPID PANEL HDL cholesterol 47 mg/dL >39 Not Available [facility]) [address] [place], [address], 09/05/2023 08:23:24 09/04/19 24 09/05/2023 LIPID PANEL VLDL cholesterol elan 24 mg/dL 5-40 Not Available [facility] ([facility]) [address] [facility] [place], [address], 09/05/2023 08:23:24 09/04/19 24 09/05/2023 LIPID PANEL LDL chol calc ([facility]) 132 mg/dL 0-99 above high normal Not Available [facility] ([facility]) [address] [facility] [place], [address], 09/05/2023 08:23:24 09/04/19 24 09/05/2023 HEPAT IC FUNCT ION PANEL (7) protein, total 7.2 g/dL 6.0-8. 5 Not Available [facility] ([facility]) [address] [facility] [place], [address], 09/05/2023 08:23:25 09/04/19 24 09/05/2023 HEPAT IC FUNCT ION PANEL (7) albumin 4.6 g/dL 3.9-4. 9 Not Available [facility] ([facility]) [address] [facility] [place], [address], 09/05/2023 08:23:25 09/04/19 24 09/05/2023 HEPAT IC FUNCT ION PANEL (7) bilirubin, total 0.6 mg/dL 0.0-1. 2 Not Available [facility] ([facility]) [address] [facility] [place], [address], 09/05/2023 08:23:25 09/04/19 24 09/05/2023 HEPAT IC FUNCT ION PANEL (7) bilirubin, direct 0.15 mg/dL 0.00-0 .40 Not Available [facility] ([facility]) [address] [place], [address], 09/05/2023 08:23:25 09/04/19 24 09/05/2023 HEPAT IC FUNCT ION PANEL (7) alkaline phosphatase 96 IU/L 44-121 Not Available [facility]) [address] [facility] [place], [address], 09/05/2023 08:23:25 09/04/19 24 09/05/2023 HEPAT IC FUNCT ION PANEL (7) AST (SGOT) 26 IU/L 0-40 Not Available [facility] ([facility]) [address] [place], [address], 09/05/2023 08:23:25 09/04/19 24 09/05/2023 HEPAT IC FUNCT ION PANEL (7) ALT (SGPT) 22 IU/L 0-32 Not Available [facility] ([facility]) [address] [facility] [place], [address], 09/05/2023 08:23:25 09/04/19 24 09/05/2023 BMP7+ EGFR glucose 117 mg/dL 70-99 above high normal Not Available [facility] ([facility]) [address] [facility] [place], [address], 09/05/2023 08:23:25 09/04/19 24 09/05/2023 BMP7+ EGFR BUN 17 mg/dL 8-27 Not Available [facility] ([facility]) [address] [facility] [place], [address], 09/05/2023 08:23:25 09/04/19 24 09/05/2023 BMP7+ EGFR creatinine 0.95 mg/dL 0.57-1 .00 Not Available [facility] ([facility]) [address] [facility] [place], [address], 09/05/2023 08:23:25 09/04/19 24 09/05/2023 BMP7+ EGFR eGFR 64 mL/mi n/1.7 3 >59 Not Available [facility] ([facility]) [address] [facility] [place], [address], 09/05/2023 08:23:25 09/04/19 24 09/05/2023 BMP7+ EGFR sodium 141 mmol/ L 134-14 4 Not Available [facility] ([facility]) [address] [place], [address], 09/05/2023 08:23:25 09/04/19 24 09/05/2023 BMP7+ EGFR potassium 4.5 mmol/ L 3.5-5. 2 Not Available [facility] ([facility]) [address] [facility], [place], [address], 09/05/2023 08:23:25 09/04/19 24 09/05/2023 BMP7+ EGFR chloride 101 mmol/ L 96-106 Not Available [facility] ([facility]) [address] [facility], [place], [address], 09/05/2023 08:23:25 09/04/19 24 09/05/2023 BMP7+ EGFR carbon dioxide, total 25 mmol/ L 20- Not Available [facility] ([facility]) [address] [facility], [place], [address], 09/05/2023 08:23:25 09/04/19 24 09/05/2023 HEMOG LOBIN A1C hemoglobin A1C 6.5 % 4.8-5. 6 above high normal Predi abete s: 5.7 - 6.4 Diabe nae: >6.4 Glyce anitha contr ol for adult s with diabe nae: <7.0 Not Available [facility] ([facility]) [address] [facility], [place], [address], 09/05/2023 08:23:26 09/04/19 24 09/05/2023 CBC WITH DIFFE RENTI AL/PL ATELE T WBC 8.2 x10e3 /uL 3.4-10 .8 Not Available [facility] ([facility]) [address] [place], [address], 09/05/2023 08:23:26 09/04/19 24 09/05/2023 CBC WITH DIFFE RENTI AL/PL ATELE T RBC 5.11 x10e6 /uL 3.77-5 .28 Not Available [facility] ([facility]) [address] [facility], [place], [address], 09/05/2023 08:23:26 09/04/19 24 09/05/2023 CBC WITH DIFFE RENTI AL/PL ATELE T hemoglobin 14.5 g/dL 11.1-1 5.9 Not Available [facility] ([facility]) [address] [facility], [place], [address], 09/05/2023 08:23:26 09/04/19 24 09/05/2023 CBC WITH DIFFE RENTI AL/PL ATELE T hematocrit 44.0 % 34.0-4 6.6 Not Available [facility] ([facility]) [address] [facility], [place], [address], 09/05/2023 08:23:26 09/04/19 24 09/05/2023 CBC WITH DIFFE RENTI AL/PL ATELE T MCV 86 fL 79-97 Not Available [facility] ([facility]) [address] [place], [address], 09/05/2023 08:23:26 09/04/19 24 09/05/2023 CBC WITH DIFFE RENTI AL/PL ATELE T MCH 28.4 pg 26.6-3 3.0 Not Available [facility] ([facility]) [address] [place], [address], 09/05/2023 08:23:26 09/04/19 24 09/05/2023 CBC WITH DIFFE RENTI AL/PL ATELE T MCHC 33.0 g/dL 31.5-3 5.7 Not Available [facility] ([facility]) [address] [place], [address], 09/05/2023 08:23:26 09/04/19 24 09/05/2023 CBC WITH DIFFE RENTI AL/PL ATELE T RDW 12.8 % 11.7-1 5.4 Not Available [facility] ([facility]) [address] [facility], [place], [address], 09/05/2023 08:23:26 09/04/19 24 09/05/2023 CBC WITH DIFFE RENTI AL/PL ATELE T platelets 251 x10e3 /uL 150-45 0 Not Available [facility] ([facility]) [address] [facility], [place], [address], 09/05/2023 08:23:26 09/04/19 24 09/05/2023 CBC WITH DIFFE RENTI AL/PL ATELE T neutrophils 64 % notest ab. Not Available [facility] ([facility]) [address] [facility], [place], [address], 09/05/2023 08:23:26 09/04/19 24 09/05/2023 CBC WITH DIFFE RENTI AL/PL ATELE T lymphs 28 % notest ab. Not Available [facility] ([facility]) [address] [facility], [place], [address], 09/05/2023 08:23:26 09/04/19 24 09/05/2023 CBC WITH DIFFE RENTI AL/PL ATELE T monocytes 6 % notest ab. Not Available [facility] ([facility]) [address] [facility], [place], [address], 09/05/2023 08:23:26 09/04/19 24 09/05/2023 CBC WITH DIFFE RENTI AL/PL ATELE T eos 1 % notest ab. Not Available [facility] ([facility]) [address] [facility], [place], [address], 09/05/2023 08:23:26 09/04/19 24 09/05/2023 CBC WITH DIFFE RENTI AL/PL ATELE T basos 1 % notest ab. Not Available [facility] ([facility]) [address] [facility], [place], [address], 09/05/2023 08:23:26 09/04/19 24 09/05/2023 CBC WITH DIFFE RENTI AL/PL ATELE T neutrophils (absolute) 5.2 x10e3 /uL 1.4-7. 0 Not Available [facility] ([facility]) [address] [facility], [place], [address], 09/05/2023 08:23:26 09/04/19 24 09/05/2023 CBC WITH DIFFE RENTI AL/PL ATELE T lymphs (absolute) 2.3 x10e3 /uL 0.7-3. 1 Not Available [facility] ([facility]) [address] [facility], [place], [address], 09/05/2023 08:23:26 09/04/19 24 09/05/2023 CBC WITH DIFFE RENTI AL/PL ATELE T monocytes(ab solute) 0.5 x10e3 /uL 0.1-0. 9 Not Available [facility] ([facility]) [address] [facility], [place], [address], 09/05/2023 08:23:26 09/04/19 24 09/05/2023 CBC WITH DIFFE RENTI AL/PL ATELE T eos (absolute) 0.1 x10e3 /uL 0.0-0. 4 Not Available [facility] ([facility]) [address] [place], [address], 09/05/2023 08:23:26 09/04/19 24 09/05/2023 CBC WITH DIFFE RENTI AL/PL ATELE T baso (absolute) 0.1 x10e3 /uL 0.0-0. 2 Not Available [facility] ([facility]) [address] [place], [address], 09/05/2023 08:23:26 09/04/19 24 09/05/2023 CBC WITH DIFFE RENTI AL/PL ATELE T immature granulocytes 0 % notest ab. Not Available [facility] ([facility]) [address] [place], [address], 09/05/2023 08:23:26 09/04/19 24 09/05/2023 CBC WITH DIFFE RENTI AL/PL ATELE T immature grans (abs) 0.0 x10e3 /uL 0.0-0. 1 Not Available [facility] ([facility]) [address] [facility], [place], [address], 09/05/2023 08:23:26 09/04/19 24 09/05/2023 SEDIM ENTAT ION RATE- WESTE RGREN sedimentatio n rate-westerg catarina 6 mm/HR 0-40 Not Available [facility] ([facility]) [address] [place], [address], 09/05/2023 08:23:27 09/04/19 24 09/05/2023 C-DEEPTHI CTIVE PROTE IN, QUANT C-reactive protein, quant 1 mg/L 0-10 Not Available [facility] ([facility]) [address] [place], [address], 09/05/2023 08:23:27 04/06/1904/07/2024 TSH+F REE T4 TSH 4.410 uIU/m L 0.450- 4.500 Not Available [facility] ([facility]) [address] [place], [address], 04/07/2024 07:08:57 04/06/1904/07/2024 TSH+F REE T4 T4,free(dire ct) 1.08 NG/dL 0.82-1 .77 Not Available [facility] ([facility]) [address] [place], [address], 04/07/2024 07:08:57 04/06/19 25 04/07/2024 LIPID PANEL cholesterol, total 148 mg/dL 100-19 9 Not Available [facility] ([facility]) [address] [place], [address], 04/07/2024 07:08:58 04/06/19 25 04/07/2024 LIPID PANEL triglyceride s 83 mg/dL 0-149 Not Available [facility] ([facility]) [address] [place], [address], 04/07/2024 07:08:58 04/06/19 25 04/07/2024 LIPID PANEL HDL cholesterol 46 mg/dL >39 Not Available [facility] ([facility]) [address] [place], [address], 04/07/2024 07:08:58 04/06/19 25 04/07/2024 LIPID PANEL VLDL cholesterol elan 16 mg/dL 5-40 Not Available [facility] ([facility]) [address] [place], [address], 04/07/2024 07:08:58 04/06/19 25 04/07/2024 LIPID PANEL LDL chol calc ([facility]) 86 mg/dL 0-99 Not Available [facility] ([facility]) [address] [place], [address], 04/07/2024 07:08:58 04/06/19 25 04/07/2024 HEPAT IC FUNCT ION PANEL (7) protein, total 6.7 g/dL 6.0-8. 5 Not Available [facility] ([facility]) [address] [place], [address], 04/07/2024 07:08:59 04/06/19 25 04/07/2024 HEPAT IC FUNCT ION PANEL (7) albumin 4.2 g/dL 3.8-4. 8 Not Available [facility] ([facility]) [address] [place], [address], 04/07/2024 07:08:59 04/06/19 25 04/07/2024 HEPAT IC FUNCT ION PANEL (7) bilirubin, total 0.4 mg/dL 0.0-1. 2 Not Available [facility] ([facility]) [address] [place], [address], 04/07/2024 07:08:59 04/06/19 25 04/07/2024 HEPAT IC FUNCT ION PANEL (7) bilirubin, direct 0.17 mg/dL 0.00-0 .40 Not Available [facility] ([facility]) [address] [place], [address], 04/07/2024 07:08:59 04/06/19 25 04/07/2024 HEPAT IC FUNCT ION PANEL (7) alkaline phosphatase 97 IU/L 44-121 Not Available [facility] ([facility]) [address] [place], [address], 04/07/2024 07:08:59 04/06/19 25 04/07/2024 HEPAT IC FUNCT ION PANEL (7) AST (SGOT) 26 IU/L 0-40 Not Available [facility] ([facility]) [address] [place], [address], 04/07/2024 07:08:59 04/06/19 25 04/07/2024 HEPAT IC FUNCT ION PANEL (7) ALT (SGPT) 20 IU/L 0-32 Not Available [facility] ([facility]) [address] [place], [address], 04/07/2024 07:08:59 04/06/19 25 04/07/2024 BMP7+ EGFR glucose 122 mg/dL 70-99 above high normal Not Available [facility] ([facility]) [address] [place], [address], 04/07/2024 07:09:00 04/06/19 25 04/07/2024 BMP7+ EGFR BUN 20 mg/dL 8-27 Not Available [facility] ([facility]) [address] [facility] [place], [address], 04/07/2024 07:09:00 04/06/1904/07/2024 BMP7+ EGFR creatinine 0.97 mg/dL 0.57-1 .00 Not Available [facility] ([facility]) [address] [facility], [place], [address], 04/07/2024 07:09:00 04/06/1904/07/2024 BMP7+ EGFR eGFR 62 mL/mi n/1.7 3 >59 Not Available [facility] ([facility]) [address] [facility], [place], [address], 04/07/2024 07:09:00 04/06/1904/07/2024 BMP7+ EGFR sodium 142 mmol/ L 134-14 4 Not Available [facility] ([facility]) [address] [facility], [place], [address], 04/07/2024 07:09:00 04/06/1904/07/2024 BMP7+ EGFR potassium 4.2 mmol/ L 3.5-5. 2 Not Available [facility] ([facility]) [address] [facility], [place], [address], 04/07/2024 07:09:00 04/06/1904/07/2024 BMP7+ EGFR chloride 103 mmol/ L 96-106 Not Available [facility] ([facility]) [address] [facility], [place], [address], 04/07/2024 07:09:00 04/06/1904/07/2024 BMP7+ EGFR carbon dioxide, total 24 mmol/ L 20- Not Available [facility] ([facility]) [address] [place], [address], 04/07/2024 07:09:00 04/06/1904/06/2024 HEMOG LOBIN A1C hemoglobin A1C 6.3 % 4.8-5. 6 above high normal Predi abete s: 5.7 - 6.4 Diabe nae: >6.4 Glyce anitha contr ol for adult s with diabe nae: <7.0 Not Available [facility] ([facility]) [address] [place], [address], 04/07/2024 07:09:01 04/06/1904/06/2024 CBC WITH DIFFE RENTI AL/PL ATELE T WBC 9.6 x10e3 /uL 3.4-10 .8 Not Available [facility] ([facility]) [address] [place], [address], 04/07/2024 07:09:02 04/06/1904/06/2024 CBC WITH DIFFE RENTI AL/PL ATELE T RBC 4.83 x10e6 /uL 3.77-5 .28 Not Available [facility] ([facility]) [address] [place], [address], 04/07/2024 07:09:02 04/06/1904/06/2024 CBC WITH DIFFE RENTI AL/PL ATELE T hemoglobin 13.6 g/dL 11.1-1 5.9 Not Available [facility] ([facility]) [address] [place], [address], 04/07/2024 07:09:02 04/06/1904/06/2024 CBC WITH DIFFE RENTI AL/PL ATELE T hematocrit 42.8 % 34.0-4 6.6 Not Available [facility] ([facility]) [address] [place], [address], 04/07/2024 07:09:02 04/06/19 25 04/06/2024 CBC WITH DIFFE RENTI AL/PL ATELE T MCV 89 fL 79-97 Not Available [facility] ([facility]) [address] [facility] [place], [address], 04/07/2024 07:09:02 04/06/19 25 04/06/2024 CBC WITH DIFFE RENTI AL/PL ATELE T MCH 28.2 pg 26.6-3 3.0 Not Available [facility] ([facility]) [address] [facility], [place], [address], 04/07/2024 07:09:02 04/06/19 25 04/06/2024 CBC WITH DIFFE RENTI AL/PL ATELE T MCHC 31.8 g/dL 31.5-3 5.7 Not Available [facility] ([facility]) [address] [facility], [place], [address], 04/07/2024 07:09:02 04/06/19 25 04/06/2024 CBC WITH DIFFE RENTI AL/PL ATELE T RDW 12.7 % 11.7-1 5.4 Not Available [facility] ([facility]) [address] [facility], [place], [address], 04/07/2024 07:09:02 04/06/1904/06/2024 CBC WITH DIFFE RENTI AL/PL ATELE T platelets 242 x10e3 /uL 150-45 0 Not Available [facility] ([facility]) [address] [facility], [place], [address], 04/07/2024 07:09:02 04/06/1904/06/2024 CBC WITH DIFFE RENTI AL/PL ATELE T neutrophils 68 % notest ab. Not Available [facility] ([facility]) [address] [facility], [place], [address], 04/07/2024 07:09:02 04/06/19 25 04/06/2024 CBC WITH DIFFE RENTI AL/PL ATELE T lymphs 24 % notest ab. Not Available [facility] ([facility]) [address] [facility], [place], [address], 04/07/2024 07:09:02 04/06/19 25 04/06/2024 CBC WITH DIFFE RENTI AL/PL ATELE T monocytes 6 % notest ab. Not Available [facility] ([facility]) [address] [facility], [place], [address], 04/07/2024 07:09:02 04/06/1904/06/2024 CBC WITH DIFFE RENTI AL/PL ATELE T eos 1 % notest ab. Not Available [facility] ([facility]) [address] [facility], [place], [address], 04/07/2024 07:09:02 04/06/1904/06/2024 CBC WITH DIFFE RENTI AL/PL ATELE T basos 1 % notest ab. Not Available [facility] ([facility]) [address] [facility], [place], [address], 04/07/2024 07:09:02 04/06/19 25 04/06/2024 CBC WITH DIFFE RENTI AL/PL ATELE T neutrophils (absolute) 6.5 x10e3 /uL 1.4-7. 0 Not Available [facility] ([facility]) [address] [facility], [place], [address], 04/07/2024 07:09:02 04/06/1904/06/2024 CBC WITH DIFFE RENTI AL/PL ATELE T lymphs (absolute) 2.3 x10e3 /uL 0.7-3. 1 Not Available [facility] ([facility]) [address] [place], [address], 04/07/2024 07:09:02 04/06/19 25 04/06/2024 CBC WITH DIFFE RENTI AL/PL ATELE T monocytes(ab solute) 0.6 x10e3 /uL 0.1-0. 9 Not Available [facility] ([facility]) [address] [place], [address], 04/07/2024 07:09:02 04/06/19 25 04/06/2024 CBC WITH DIFFE RENTI AL/PL ATELE T eos (absolute) 0.1 x10e3 /uL 0.0-0. 4 Not Available [facility] ([facility]) [address] [facility], [place], [address], 04/07/2024 07:09:02 04/06/19 25 04/06/2024 CBC WITH DIFFE RENTI AL/PL ATELE T baso (absolute) 0.1 x10e3 /uL 0.0-0. 2 Not Available [facility] ([facility]) [address] [facility], [place], [address], 04/07/2024 07:09:02 04/06/19 25 04/06/2024 CBC WITH DIFFE RENTI AL/PL ATELE T immature granulocytes 0 % notest ab. Not Available [facility] ([facility]) [address] [facility], [place], [address], 04/07/2024 07:09:02 04/06/19 25 04/06/2024 CBC WITH DIFFE RENTI AL/PL ATELE T immature grans (abs) 0.0 x10e3 /uL 0.0-0. 1 Not Available [facility] ([facility]) [address] [facility], [place], [address], 04/07/2024 07:09:02 09/22/19 24 09/22/2023 US, duple x, carot id arter y No observ ation record ed. [facility] [address], [place], [address], 09/23/2023 16:06:21 09/22/19 24 09/22/2023 MRI, brain + orbit s, w/wo contr ast No observ ation record ed. [facility] [address], [place], [address], 04/06/2024 13:43:56 09/22/19 24 09/22/2023 MRI, brain + orbit s, w/wo contr ast No observ ation record ed. [facility] [address], [place], [address], 09/23/2023 16:06:22 09/25/19 24 06/18/2022 MAMMO , scree ricki, digit al, bilat eral No observ ation record ed. BARCODE Not Available 2023 12:01:46 09/25/19 24 12/20/2018 colon oscop y scree ricki (PROC ) No observ ation record ed. [email or web address] Not Available 2024 09:45:40 11/10/19 24 11/10/2023 LDCT, chest , for lung cance r daniella keenang No observ ation record ed. [email or web address] [facility] [address], [place], [address], 04/06/2024 09:44:02 Result Notes None recorded. Problems Name Problem SNOMED Code Status Onset Date Resolution Date Notes Provider Name and Address Organization Details Recorded Time Ex-smoker 9165658 Active 2023 ALECIA Juárez Attn: Stewart puentes,[address] [facility], [place], [address], [facility] - [facility] 19:49:51 History of subtotal thyroidecto my 927783620 Active 2023 ALECIA Juárez Attn: Stewart puentes,[address] [facility], [place], [address], [facility] - [facility] 4 19:50:09 Long-term drug therapy Active 2023 ALECIA Juárez Attn: Stewart puentes,[address] [facility], [place], [address], [facility] - [facility] 4 19:50:24 Prediabetes 945796411 Active 2023 ALECIA Juárez Attn: Stewart puentes,[address] [facility], [place], [address], [place] [facility] 4 19:50:25 Benign essential hypertensio n 8945242 Active 2023 ALECIA Juárez Attn: Accountmichelle g,[address] [facility], [place], [address], [place] [facility] 4 19:50:50 Hyperlipide daniel 82812505 Active 2023 ALECIA Juárez Attn: Accountin g,[address] [facility], [place], [address], [place] [facility] 4 19:50:51 Body mass index 30+ - obesity 525169038 Active 2023 ALECIA Juárez Attn: Accountin g,[address] [facility], [place], [address], [place] [facility] 4 19:53:13 Type 2 diabetes mellitus without complicatio n 581350950 Active 2024 ALECIA Juárez Attn: Accountin g,[address] [facility], [place], [address], [place] [facility] 5 17:52:45 Obesity 176350060 Active 2024 ALECIA Juárez Attn: Accountin g,[address] [facility], [place], [address], [place] [facility] 5 17:52:58 History of polyp of colon 362643608 Active 2024 ALECIA Juárez Attn: Accountin g,[address] [facility], [place], [address], [place] [facility] 5 17:53:06 Dysfunction of bilateral eustachian tubes 393493|[id number]|2024-07-25 08:09:00|2024-07-25 08:08:00|XMS_ITS|ALMA DELIA CAMPO|External Medical Summaries|[id number]|" Data Portability Created on: July 25, 2024 Kath Luna .[id number] : 1955 Sex: Female Author Organization [place] [facility], Main Office Address [address] [place] [address] Assessment Encounter Date Assessment Date Assessment LastModified by Organization Details LastModified Time 11/05/2022 11/05/2022 Mammogram june 2022 colonoscopy 2018, due 2023 dental UTD eye UTD labs due now. [email or web address] Not available 11/05/2022 09:30:01 Plan of Treatment Reminders Order Date Submit Date Provider Last Modified By Organization Details Last Modified Time Details Appointments None recorded. Lab HbA1c (hemoglobin A1c), blood 2022 023 [email or web address] [facility], [address], [place], [address], 3 09:15:28 BMP, serum or plasma 2022 023 [email or web address] [facility], [address], [place], [address], 3 09:15:48 CBC w/ auto diff 2022 023 [email or web address] [facility], [address], [place], [address], 3 09:15:57 hepatic function panel, serum 2022 023 [email or web address] [facility], [address], [place], [address], 3 09:16:18 urinalysis, dipstick 2022 023 [email or web address] [facility], [address], [place], [address], 3 09:16:26 culture, urine 2022 023 [email or web address] [id number] [facility], [address], [place], [address], 3 09:16:33 lipid panel, serum 2022 023 [email or web address] [id number] [facility], [address], [place], [address], 3 09:15:21 T3, free, serum or plasma [address], [address], [address], [place], [address], 3 09:15:39 TSH + free T4, serum [address], 2022 [address], [address], [place], [address], 3 10:07:58 Referral None recorded. Procedures None recorded. Surgeries None recorded. Imaging LDCT, chest, for lung cancer screening - approved [id number] 11/05/22-04/10 62022 023 [facility], [address], [place], [address], 3 11:42:24 Medication Orders doxycycline hyclate 100 mg tablet 2022 023 [facility] #[id number], [address], [place], [address], 3 09:30:46 prednisone 20 mg tablet 2022 023 [facility] #[id number], [address], [place], [address], 3 09:30:46 Patient TargetsNo targets recorded. Patient InstructionsNo instructions recorded. Reason for Referral None Reported. Results Created Date Observation Date Name Description Value Unit Range Abnormal Flag Note LastModifiedBy Organization Detail LastModifiedTime 08/02/19 22 XR, foot No observ ation record ed. [id number] [facility] [place] [address], [place], [address], 05/07/2022 13:35:10 10/03/19 22 10/02/2021 CT, angio gram, chest , w/ contr ast No observ ation record ed. [id number], [place], [address], 05/07/2022 13:35:10 11/18/19 23 11/07/2022 LDCT, chest , for lung cance r tammye ricki No observ ation record ed. [email or web address] [facility] [address], [place], [address], 11/17/2022 15:01:40 12/06/19 23 06/18/2022 MAMMO , scree ricki, digit al, bilat eral No observ ation record ed. [email or web address] [place] [address] [facility] [address], [place], [address], 12/08/2022 17:14:04 Result Notes None recorded. Problems Name Problem SNOMED Code Status Onset Date Resolution Date Notes Provider Name and Address Organization Details Recorded Time Ganglion cyst of right foot 5816608307541 108 Active 2021 Not Available [facility] 3 12:33:37 Contusion of right foot 3908315170318 9103 Active 2021 Not Available [facility] 3 12:33:37 Chronic obstructiv e pulmonary disease 97331664 Active 2020 Not Available [facility] 3 12:33:37 Dry skin 96531957 Active 2021 Not Available [facility] 3 12:33:37 Fracture of phalanx of foot 95551339 Active 2021 Not Available [facility] 3 12:33:37 Gastroesop hageal reflux disease 722881073 Active 2017 Not Available [facility] 3 12:33:37 Dyspnea 487044784 Active 2021 Not Available [facility] 3 12:33:37 Thyroid function tests abnormal 033519277 Active 2021 Not Available [facility] 3 12:33:37 History of subtotal thyroidect dirk 862173155 Active 2020 Not Available [facility] 3 12:33:37 Foot pain 40427992 Active 2021 Not Available [facility] 3 12:33:37 Hyperlipid emia 52647863 Active 2017 Not Available [facility] 3 12:33:37 Bone cyst of foot 544798327 Active 2021 Not Available [facility] 3 12:33:37 Impaired glucose tolerance 9395902 Active 2020 Not Available [facility] 3 12:33:37 Acute urinary tract infection 400322499 Active 2022 Not Available [facility] 3 12:33:37 Lower urinary tract symptoms 033249487 Active 2022 Not Available [facility] 3 12:33:37 Low-pitche d rhonchi 63167644 Active 2022 Not Available [facility] 3 12:33:37 Problem Notes None recorded. Procedures Surgical History Date Name Laterality Status Provider Name and Address Organization Details Recorded Time 04/11/19 Thyroid Surgery completed Not Available [facility] 03/2022 13:30:01 03/28/19 20 Most Recent Bone Density completed Not Available [facility] 05/07/2022 13:30:00 12/21/19 Date of Last Colonoscopy completed Not Available [facility] 05/07/2022 13:30:00 Hysterectomy completed Not Available [facility] 05/07/2022 13:30:01 other completed Not Available [facility] 03/2022 13:30:01 oophorectomy completed Not Available [facility] 05/07/2022 13:30:01 Eye Surgery completed Not Available [facility] 05/07/2022 13:30:01 Imaging Results Imaging Date Name Status LastModified by Organiz ation Details LastModified Time 08/01/2021 XR, foot completed [id number] [facility] [place] [address], [place], [address], 05/07/2022 13:35:10 10/02/2021 CT, angiogram, chest, w/ contrast completed [id number] [address] [place] [address] [address] [facility] [address], [place], [address], 05/07/2022 13:35:10 11/07/2022 LDCT, chest, for lung cancer screening completed [email or web address] [facility] [address], [place], [address], 11/17/2022 15:01:40 06/18/2022 MAMMO, screening, digital, bilateral completed [address] [facility] [address], [place], [address], 12/08/2022 17:14:04 Procedure Notes None recorded. Medical Equipment None Reported. Allergies No known drug allergies Medications Name Sig Start Date Stop Date Status Note LastModified by Organization Details LastModified Time amoxicillin 500 mg capsule 04/30 completed Not Available Not Available Not Available ammonium lactate 12 % lotion APPLY TO FEET TWICE DAILY 11/04 completed Not Available Not Available Not Available azithromyci n 250 mg tablet 10/10 completed Not Available Not Available Not Available ibuprofen 800 mg tablet 10/10 completed Not Available Not Available Not Available hydrocodone 5 mg-acetamin ophen 325 mg tablet TAKE 1-2 TABLETS BY MOUTH EVERY 4-6 HOURS NEEDED FOR PAIN RATED 4-6 active Not Available Not Available No t Available prednisone 20 mg tablet TAKE 2 TABLETS BY MOUTH EVERY DAY FOR 5 DAYS active Not Available Not Available No t Available lovastatin 40 mg tablet TAKE 1 TABLET BY MOUTH EVERY DAY active Not Available Not Available No t Available ciprofloxac in 500 mg tablet TAKE 1 TABLET BY MOUTH EVERY 12 HOURS active Not Available Not Available No t Available prednisolon e acetate 1 % eye drops,suspe nsion 10/10 completed Not Available Not Available Not Available nystatin-tr iamcinolone 100,000 unit/g-0.1 % topical cream APPLY TO THE AFFECTED AREA(S) ON THE SKIN TWICE DAILY NEEDED FOR YEAST RASH 11/04 completed Not Available Not Available Not Available omeprazole 20 mg capsule,del ayed release TAKE 1 CAPSULE BY MOUTH EVERY DAY NEEDED 11/05 completed Not Available Not Available Not Available codeine 10 mg-guaifene sin 100 mg/5 mL oral liquid TAKE 10 ML BY MOUTH EVERY 6 HOURS NEEDED 06/28 completed Not Available Not Available Not Available nystatin 100,000 unit/gram topical powder APPLY TO THE AFFECTED AREA(S) ON THE SKIN TWICE DAILY active Not Available Not Available No t Available lovastatin 20 mg tablet TAKE 1 TABLET BY MOUTH EVERY DAY IN THE EVENING 05/17 completed Not Available Not Available Not Available methylpredn isolone 4 mg tablets in a dose pack TAKE 6 TABLETS ON DAY 1 DIRECTED ON PACKAGE AND DECREASE BY 1 TAB EACH DAY FOR A TOTAL OF 6 DAYS 04/14 completed Not Available Not Available Not Available doxycycline hyclate 100 mg tablet TAKE 1 TABLET BY MOUTH TWICE A DAY WITH MEALS active Not Available Not Available No t Available amoxicillin 875 mg-potassiu m clavulanate 125 mg tablet Take 1 tablet every 12 hours by oral route. 03/17 completed Not Available Not Available Not Available oxycodone 5 mg tablet 07/25 completed Not Available Not Available Not Available Pneumovax-2 3 25 mcg/0.5 mL injection syringe PHARMACY ADMINISTE RED active Not Available Not Available No t Available Zantac takes one daily 05/01 completed Not Available Not Available Not Available Calcium 500 + D takes one daily 2016 active Not Available Not Available Not Avai lable lidocaine (PF) 10 mg/mL (1 %) injection solution In office injection administe red by the provider 07/[address] [facility]: [phone] Not Available Not Available Not Available budesonide- formoterol HFA 160 mcg-4.5 mcg/actuati on aerosol inhaler TAKE 2 PUFFS BY MOUTH TWICE A DAY active Not Available Not Available No t Available omeprazole 20 mg tablet,dakotah yed release Take 1 tablet every day by oral route as needed. 03/12 completed Not Available Not Available Not Available GaviLyte-N 420 gram oral solution TAKE DIRECTED active Not Available Not Available No t Available gatifloxaci n 0.5 % eye drops 10/10 completed Not Available Not Available Not Available [facility] spacer USE DIRECTED WITH SYMBICORT active Not Available Not Available No t Available Combivent Respimat 20 mcg-100 mcg/actuati on solution for inhalation INHALE 1 PUFF BY MOUTH 4 TIMES DAILY NEEDED 2022 active Not Available Not Available Not Avai lable Fluarix Quad (PF) 60 mcg (15 mcg x 4)/0.5 mL IM syringe active Not Available Not Available N ot Available Shingrix (PF) 50 mcg/0.5 mL intramuscul ar suspension, kit 07/25 completed Not Available Not Available Not Available Fluzone High-Dose (PF) 180 mcg/0.5 mL intramuscul ar syringe TO BE ADMINISTE RED BY PHARMACIS T FOR IMMUNIZAT ION 07/25 completed Not Available Not Available Not Available Fluzone High-Dose Quad (PF) 240 mcg/0.7 mL IM syringe PHARMACY ADMINISTE RED active Not Available Not Available No t Available Flowflex COVID-19 Antigen Home Test kit USE DIRECTED 11/04 completed Not Available Not Available Not Available Vitals Date Recorded Body mass index (BMI) Body height Oxygen saturation Oxygen saturation in Arterial blood by Pulse oximetry Heart rate Respiratory rate Body temperature Body weight Provider Name and Address Organization Details Last Updated DateTime 2 39.5 kg/m2 162.56 cm 95 % 95 % 79 /min 16 /min 97.7 [degF] 413928. 96 g Not Available [facility] 3 13:30:24 Date Recorded Oxygen saturation Oxygen saturation in Arterial blood by Pulse oximetry Heart rate Respiratory rate Body temperature Body weight Systolic blood pressure Diastolic blood pressure Provider Name and Address Organization Details Last Updated DateTime 2 99 % 99 % 86 /min 16 /min 97.8 [degF] 080650. 02 g 122 mm[Hg] 70 mm[Hg] Not Available [facility] 3 13:30:18 Date Recorded Body weight Provider Name an d Address Organization Details Last Updated DateTime 09/02/2021 761823.02 g Not Available [facility] 05/08/19 23 13:30:24 Date Recorded Body temperature Body height Body mass index (BMI) Body weight Respiratory rate Oxygen saturation Oxygen saturation in Arterial blood by Pulse oximetry Heart rate Systolic blood pressure Diastolic blood pressure Provider Name and Address Organization Details Last Updated DateTime 3 97.6 [degF] 162.56 cm 39.1 kg/m2 425073. 06 g 16 /min 99 % 99 % 95 /min 128 mm[Hg] 80 mm[Hg] ANTONIO Matthews [employer] [facility] 3 08:59:03 Date Recorded Systolic blood pressure Diastolic blood pressure Provider Name and Address Organization Details Last Updated DateTime 11/05/2022 124 mm[Hg] 80 mm[Hg] ALECIA Juárez [address] [place] [address], [address], [employer] 11/05/2022 09:30:54 Social History Question Answer Notes LastModified by Organizat ion Details LastModified Time Tobacco Smoking Status Former Smoker Not Available [facility] 05/07/2022 13:29:48 Are You Blind Or Do You Have Difficulty Seeing? No [email or web address] Information not available 11/04/2022 What Is Your Level Of Caffeine Consumption? Occasional [id number] Information not available 05/07/2022 How Much Tobacco Do You Chew? None MIGRATION.[id number] Information not available 05/07/2022 In The 14 Days Before Symptom Onset, Have You Had Close Contact With A Laboratory-confir med COVID-19 While That Case Was Ill? No MIGRATION.106000 4675 Information not available 05/07/2022 In The 14 Days Before Symptom Onset, Have You Had Close Contact With A Person Who Is Under Investigation For COVID-19 While That Person Was Ill? No MIGRATION.[id number] 6920 Information not available 05/07/2022 What Type Of Diet Are You Following? REGULAR MIGRATION.[id number] 0393 Information not available 05/07/2022 Which Illicit Or Recreational Drugs Have You Used? None MIGRATION.[id number] 5546 Information not available 05/07/2022 Have There Been Any Changes To Your Family Or Social Situation? No MIGRATION.810888 0197 Information not available 05/07/2022 Do You Use Insect Repellent Routinely? No [email or web address] Information not available 11/04/2022 What Is Your Relationship Status? MIGRATION.539382 7837 Information not available 05/07/2022 Do You Use Your Seat Belt Or Car Seat Routinely? Yes MIGRATION.318536 6542 Information not available 05/07/2022 Do You Have Smoke And Carbon Monoxide Detectors In Your Home? Yes MIGRATION.688676 7326 Information not available 05/07/2022 At What Age Did You Start Smoking Tobacco? 14 MIGRATION.037293 9759 Information not available 05/07/2022 How Much Tobacco Do You Smoke? 0.5 PPD MIGRATION.122115 9070 Information not available 05/07/2022 Do You Use Sunscreen Routinely? Yes [email or web address] Information not available 11/04/2022 Have You Recently Traveled Abroad? No MIGRATION.946858 4650 Information not available 05/07/2022 Do You Have Difficulty Walking Or Climbing Stairs? No Information not available 11/04/2022 Do You Have Any Dietary Restrictions? No MIGRATION.463053 3392 Information not available 05/07/2022 Sex: Unknown Functional Status Question Answer Note LastModified by Organizat ion Details LastModified Time Do you or have you ever used smokeless tobacco? Never used smokeless tobacco MIGRATION.851767 8980 Information not available 05/07/2022 Are you currently employed? No [email or web address] Information not available 11/04/2022 Do you have transportation difficulties? No Information not available 11/04/2022 Are you able to care for yourself? Yes MIGRATION.816521 4374 Information not available 05/07/2022 Do you have difficulty dressing or bathing? No MIGRATION.343028 2507 Information not available 05/07/2022 Do you or have you ever used e-cigarettes or vape? Never used electronic cigarettes MIGRATION.395725 4224 Information not available 05/07/2022 What is your exercise level? Occasional MIGRATION.605630 3826 Information not available 05/07/2022 Do you use any illicit or recreational drugs? No MIGRATION.271090 6120 Information not available 05/07/2022 Do you or have you ever used any other forms of tobacco or nicotine? No MIGRATION.864153 3819 Information not available 05/07/2022 What is your level of alcohol consumption? Occasional MIGRATION.883630 2674 Information not available 05/07/2022 Are you able to walk? [place]WOREST [email or web address] Information not available 11/04/2022 Do you have difficulty doing errands alone? No MIGRATION.839913 7633 Information not available 05/07/2022 What is your occupation? [employer] MIGRATION.255729 7425 Information not available 05/07/2022 Mental Status None recorded. Family History Relationship Description Onset Age of this Age Resolved Age Notes LastModified by Organization Details LastModified Time Mother Dementia [id number] Not available 05/07/2022 13:30:02 Father Hodgkin's disease (clinical) 39 MIGRATION.822 [id number] Not available 05/07/2022 13:30:02 Maternal Grandfather Carcinoma of prostate MIGRATION.847 [id number] Not available 05/07/2022 13:30:02 Sister Multiple sclerosis MIGRATION.895 [id number] Not available 05/07/2022 13:30:02 Sister Diabetes mellitus MIGRATION.643 [id number] Not available 05/07/2022 13:30:02 Medical History Condition Response HEARTBURN / REFLUX Y Gynecological History Statement/Question Response Date of Last Mammogram 04/13/2020 Current Control Method Hysterectom y Date of Last Colonoscopy 12/20/2018 Most Recent Bone Density 03/28/2019 Sexually Active? N Obstetrics History GPAL:G 2 P 0 0 0 2 Type Value Living 2 Total 2 Immunizations Vaccine Type Date Status Note Provider Nam e and Address Organization Details Recorded Time influenza, unspecified formulation 3 completed ANTONIO Matthews null, [place] [facility] [place] [facility] 01/07/2023 16:56:48 Influenza, high-dose, trivalent, PF 9 completed Not Available [facility] 05/07/2022 13:35:01 COVID-19 vaccine, vector-nr, rS-Ad26, PF, 0.5 mL 1 completed Not Available [facility] 05/07/2022 13:35:01 COVID-19, mRNA, LNP-S, PF, 100 mcg/0.5mL dose or 50 mcg/0.25mL dose 1 completed Not Available [facility] 05/07/2022 13:35:01 influenza, unspecified formulation 0 completed Not Available [facility] 05/07/2022 13:35:01 Tdap 8 completed Not Available [facility] 05/07/2022 13:35:01 Influenza, high-dose, quadrivalent, PF 2 completed Not Available [facility] 05/07/2022 13:35:02 zoster recombinant 1 completed Not Available [facility] 05/07/2022 13:35:02 zoster recombinant 0 completed Not Available [facility] 05/07/2022 13:35:02 zoster live 8 completed Not Available [facility] 05/07/2022 13:35:02 influenza, unspecified formulation 7 completed Not Available [facility] 05/07/2022 13:35:02 Influenza, high-dose, trivalent, PF 9 completed Not Available [facility] 05/07/2022 13:35:02 Pneumococcal conjugate PCV 13 9 completed Not Available [facility] 05/07/2022 13:35:03 Past Encounters Encounter ID Performer Location Encounter Start Date Encounter Closed Date Diagnosis/Indication Diagnosis SNOMED-CT Code Diagnosis ICD10 Code Diagnosis Note [id number] ALECIA Juárez [facility] [place] [address] [place] [address] 07/25/2020 00:00:00 07/25/2020 13:30:26 [id number] Doni Segura MD [facility] [place] [address] [place] [address] 07/30/2021 00:00:00 08/05/2021 15:01:47 [id number] [facility] [place] [address] [place] [id number] 08/01/2021 00:00:00 08/01/2021 10:14:19 [id number] [facility] [place] [address] [place] [id number] 09/02/2021 00:00:00 09/02/2021 13:06:05 [id number] Doni Segura MD [facility] [place] [address] [place] [address] 10/02/2021 00:00:00 10/02/2021 13:48:44 [id number] ALECIA Juárez [facility] [place] [address] [place] [id number] 11/05/2022 08:54:00 11/05/2022 09:34:51 Hyperlipidemia 37703078 E78.5 on statin therapy due for labs today Gastroesop hageal reflux disease 830138232 K21.9 stable. no c/o Chronic ob structive pulmonary disease 69136560 J44.9 on symbicort but feels it causes much mucous after dosing each time and mucous is thick and hard to expel. she would like to taper down to 1 puff bid. Impaired g lucose tolerance 3641407 R73.03 a1c due Thyroid fu nction tests abnormal 198728449 R94.6 TFTs are due Long-term drug therapy 728861853 Z79.899 History of subtotal thyroidectomy 720242018 Z90.09 Lower urin alla tract symptoms 908502267 R39.9 pt has had recent frequency and inability to empty bladder completely , dribbling. had abx before her vacation recently but it has not resolved. check UA w/cx Ex-smoker 1541876 Z87.89 1 annual LDCT scan of lung due. Low-pitched rhonchi 5354 1006 R09.89 rhonchi noted on most lung anand on exam. start doxy 100mg bid course with prednisone burst. she has a lot of sputum . Health Concerns Section Related Observation LastModified by Organization Detai ls LastModified Time None Recorded Concern Status LastModified by Organization Details LastModified Time None Recorded Advance Directives Directive None Recorded Payers Encounter Date Sequence Insurance Name Policy Number Policy Navarrete Covered Member ID Navarrete Member ID Guarantor Name 11/05/2022 1 [employer] (MEDICARE REPLACEMENT/ ADVANTAGE - PPO) [id number] Kath Luna [id number] Cedric Luna Notes Date Note Type Note Provider Name and Address Organization Details Recorded Time 07/31/19 22 text/htm l Generic HPI TemplateReported bypatient.Location:r foot Onset/Timin/7 Context:swelling, pain, was burning last week during the night but that was an single incident. Aggravating factors:Walking makes it worse, surgical shoe rubs on the bump and hurts. Alleviating factors:ibuprofen twice a day, ice brings swelling down but foot still swells when she is walking. swelling has lessened over the last day or two.Notes:Pt broke toe R pinky toe (possible chip fracture) but that doesn't bother her, there is a bump on the top side of her foot by the ankle. Not Available [facility] [employer] [facility] 08/05/2021 15:01:47 10/03/19 22 text/htm l Generic HPI TemplateReported bypatient.Notes:Pt states September 06 she thought she had COVID but home tests were neg. Says she had nasal drainage, sore throat, and headache. She says since then she has been getting winded very easily. SOB just going up 3 stairs.HyperlipidemiaReported bypatient.Duration:chronic Control:usually well controlled Current Therapy:currently taking: (lovastatin 40mg) Compliance:compliant; compliant with diet; exercises Complications:no coronary artery disease; no peripheral artery disease; no cardiovascular diseaseReflux/GERDReported bypatient.Symptomsasymptomatic; no difficulty swallowing; no pain swallowing; no postprandial pain Severity:same Duration:present 5 or more years Onset/Timing:gone now Context:non-smoker; no drug/alcohol abuse; no drug alcohol withdrawal; not related to food/drink Alleviating Factors:medication Aggravating Factors:worsened by food;caffeine intake Associated Symptoms:no frequent coughing; no hoarseness; no food getting stuck; no belching/burping; no vomiting; not vomiting blood; no regurgitation; no shortness of breath; no chest pain; no heartburn; no difficulty swallowing; no pain when swallowing; no bad taste; no decreased appetite; no weight loss; no black/tarry stools; no fatigue; no throat pain; no dental erosion; no bloating; no early satiety; no halitosis Not Available [employer] [facility] 10/02/2021 13:48:44 11/06/19 23 text/htm l COPDReported bypatient.Severity:not limiting Onset/Timing:chronic Context:cigarette smoking (hx of) Modifying Factors:relieved with bronchodilator Associated Symptoms:no dyspnea;coughing up sputumHyperlipidemiaReported bypatient.Duration:chronic Control:usually well controlled Compliance:compliant; compliant with diet; exercises Complications:no coronary artery disease; no peripheral artery disease; no cardiovascular diseaseReflux/GERDReported bypatient.Severity:same Duration:present 5 or more years Onset/Timing:gone now Context:non-smoker; no drug/alcohol abuse; no drug alcohol withdrawal; not related to food/drink Alleviating Factors:OTC medication Associated Symptoms:no frequent coughing; no feeling of fullness/mass in throat; no hoarseness; no food getting stuck; no belching/burping; no vomiting; not vomiting blood; no regurgitation; no shortness of breath; no chest pain; no heartburn; no difficulty swallowing; no pain when swallowing; no bad taste; no decreased appetite; no weight loss; no black/tarry stools; no fatigue; no throat pain ALECIA Juárez [address] [facility], [facility] [address], [place], [address], [facility] [employer] [facility] 11/05/2022 09:41:52 OBGyn Episode No OBEpisode recorded. "
== END 2024-07-25 08:03 | disposition home or self-care (01) ==
LOC: ANHIMG 08:04
PROVIDERS: PCP Physician Assistant; Visit Provider Obstetrics & Gynecology
DX: Z12.31 Encounter for screening mammogram for malignant neoplasm of breast (principal)
CPT/HCPCS: 77063; 77067

== ENCOUNTER 2024-08-09 01:42 | Day surgery (SDC) | payer MEDICARE, SELFPAY ==
[2024-07-29 13:46] VITALS: BMI 40.4
--- OUTSIDE RECORDS SUMMARY | 2024-08-09 01:44 | XMS_ITS | Referral Summary ---
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 Gender Identity Not on file Sexual Orientation Not on file Last Filed Vital Signs Vital Sign Reading Time Taken Comments Blood Pressure 115/65 04/11/2019 3:10 PM GLOBAL UPSTREAM MARKETING MANAGER Pulse 81 04/11/2019 3:10 PM GLOBAL UPSTREAM MARKETING MANAGER Temperature 36.1 C (97 F) 04/11/2019 3:40 PM GLOBAL UPSTREAM MARKETING MANAGER Respiratory Rate 15 04/11/2019 3:10 PM GLOBAL UPSTREAM MARKETING MANAGER Oxygen Saturation 96% 04/11/2019 3:10 PM GLOBAL UPSTREAM MARKETING MANAGER Inhaled Oxygen Concentration - - Weight 111.1 kg (245 lb) 11/06/2023 8:37 AM CDT Height 162.6 cm (5' 4) 11/06/2023 8:37 AM CDT Body Mass Index 42.05 11/06/2023 8:37 AM CDT Plan of Treatment Not on file Insurance [facility] MEDICARE MEDICARE [facility] OPEN ACCESS [facility] MEDICARE ADVANTAGE [facility] MEDICARE Address: [address] [address] [place] [address] [facility] MEDICARE Care Teams Energy Project Manager Relationship Specialty Start Date End Date Queta Barnard PA PCP - General Physician Auto Body Technician 04/15/18"
--- OUTSIDE RECORDS SUMMARY | 2024-08-09 01:45 | XMS_ITS | Clinical Summary ---
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 Gender Identity Not on file Sexual Orientation Not on file Obstetrics History Last Filed Vital Signs Vital Sign Reading Time Taken Comments Blood Pressure 115/65 04/11/2019 3:10 PM MUSIC ENGRAVER Pulse 81 04/11/2019 3:10 PM MUSIC ENGRAVER Temperature 36.1 C (97 F) 04/11/2019 3:40 PM MUSIC ENGRAVER Respiratory Rate 15 04/11/2019 3:10 PM MUSIC ENGRAVER Oxygen Saturation 96% 04/11/2019 3:10 PM MUSIC ENGRAVER Inhaled Oxygen Concentration - - Weight 111.1 [...] Zoster Vaccine Completed 03/21/2020, 11/08, 03/09/[address] [place] [address] [place] [address] MEDICARE [facility] [address] MEDICARE Address[facility] [id number] [place] [address] MEDICARE [employer] [facility] [employer] OPEN ACCESS [employer] MEDICARE [facility] MEDICARE Address: [address] [address] [place] [address] [employer] MEDICARE Care Teams Geography Head Relationship Specialty Start Date End Date Queta Barnard PA PCP - General Physician Faa Certified Powerplant Mechanic 04/15/18
[2024-08-09 06:18] VITALS: BP 159/64; PULSE 62; RESP 16; TEMP 36.1; O2SAT 95; BMI 38.8
[2024-08-09] MEDS: LACTATED RINGERS 1,000 ML 150 ML IV CONT (06:29)
--- NOTE | 2024-08-09 07:00 | WPDANESEPPF ---
Anes - Initial Pre Proc Eval Procedure: Operation Date: 08/09/24 07:30 Proposed Procedures p Screening Colonoscopy - Leonardo Bran MD Date/Time: 08/09/24 07:00 Surgeon: Leonardo Bran MD Pre Op Diagnosis: Screening personal Hx Patient Data Age: 69 Gender: F Height: 1.63 m Weight: 102.7 kg Last Vital Signs Temp 36.1 C L 08/09/24 06:18 Pulse 62 08/09/24 06:18 Resp 16 08/09/24 06:18 BP 159/64 H 08/09/24 06:18 Pulse Ox 95 08/09/24 06:18 O2 Del Method Room Air 08/09/24 06:18 Allergies Allergy/AdvReac Type Severity Reaction Status Date / Time No Known Allergies Allergy Unknown Uncoded 08/09/24 06:17 Home Medications ?Medication ?Instructions ?Recorded ?Confirmed ?Type ipratropium 20 mcg-albuterol 100 1 puff inhalation BID 10/12/19 08/09/24 History mcg/actuation mist for inhalation (Combivent Respimat) budesonide-formoterol HFA 160 1 inh inhalation ONCE 11/13/21 08/09/24 History mcg-4.5 mcg/actuation aerosol inhaler (Symbicort) calcium 300 mg-D3 20 mcg-magnesium 1 tablet PO DAILY 11/13/21 07/29/24 History 25 mg-coppr 0.5 [id number] tablet (Caltrate-D3 Plus Minerals) atorvastatin 40 mg tablet 40 mg PO QPM 07/29/24 07/29/24 History Patient hx anesthesia problems: none Family hx anesthesia problems: none Results Review: All pre-operative results and documents have been reviewed as part of the pre-operative evaluation. [facility] Past Medical History Medical History (Updated 08/08/24 @ 14:43 by John Jones DO) GERD (gastroesophageal reflux disease) COPD (chronic obstructive pulmonary disease) Elevated TSH History of vaginal delivery x 2 Asthma Surgical History Surgical History S/P partial thyroidectomy S/P partial thyroidectomy History of laparoscopy H/O bilateral salpingectomy Hx of LASIK H/O: hysterectomy Family History Family History Sibling Family history of multiple sclerosis Father Patient's father is Social History Social History Smoking status: Former smoker Second hand tobacco smoke exposure: No Smoking end date: 04/10/12 Alcohol intake: current Lack of Transportation: No Lack of Food: Never True Current Housing: I Have Housing Concerned About Future Housing: No Difficulty Paying Gas/Electric Bills: No Difficulty Paying for Meds: No Currently Unemployed: No Education: Master's Degree or Higher Difficulty w/ Childcare or Family Care: No Anes - Eval Final PreProcedure Day of Procedure 08/09/24 07:00 Patient weight: obese Heart: regular rate and rhythm Lungs: clear to auscultation Airway: Mallampati scale class II Neurological: alert and oriented Last oral intake: >/= 8 hours ASA classification: III Emergent: no Anesthetic plan: proceed Anesthesia type and monitoring: general GIVS and standard monitoring Results Review: All pre-operative results and documents have been reviewed as part of the pre-operative evaluation. Informed Consent: The patient's anesthetic plan and its attendant risks and benefits were discussed with the patient/family/POA. Questions were solicited and answers provided to the satisfaction of the patient/family/POA.
--- NOTE | 2024-08-09 07:23 | PM.HPGS ---
History of Present Illness History of Present Illness Consent: Risks, benefits, and alternatives have been discussed and questions answered. Patient agrees to proceed with procedure. Chief complaint: Screening personal Hx Narrative: Kath Luna is a 69 year old female with colon polyp in 2019 Review of Systems Review of Systems: All systems reviewed & are unremarkable except as noted in HPI and below PMFSH Past Medical History Medical History (Updated 08/09/24 @ 07:24 by Leonardo Bran MD) Colon polyp GERD (gastroesophageal reflux disease) COPD (chronic obstructive pulmonary disease) Elevated TSH History of vaginal delivery x 2 Asthma Surgical History Surgical History S/P partial thyroidectomy S/P partial thyroidectomy History of laparoscopy H/O bilateral salpingectomy Hx of LASIK H/O: hysterectomy Family History Family History Sibling Family history of multiple sclerosis Father Patient's father is Social History Social History Smoking status: Former smoker Second hand tobacco smoke exposure: No Smoking end date: 04/10/12 Alcohol intake: current Lack of Transportation: No Lack of Food: Never True Current Housing: I Have Housing Concerned About Future Housing: No Difficulty Paying Gas/Electric Bills: No Difficulty Paying for Meds: No Currently Unemployed: No Education: Master's Degree or Higher Difficulty w/ Childcare or Family Care: No Meds Home Medications and Allergies Home Medications ?Medication ?Instructions ?Recorded ?Confirmed ?Type ipratropium 20 mcg-albuterol 100 1 puff inhalation BID 10/12/19 08/09/24 History mcg/actuation mist for inhalation (Combivent Respimat) budesonide-formoterol HFA 160 1 inh inhalation ONCE 11/13/21 08/09/24 History mcg-4.5 mcg/actuation aerosol inhaler (Symbicort) calcium 300 mg-D3 20 mcg-magnesium 1 tablet PO DAILY 11/13/21 07/29/24 History 25 mg-coppr 0.5 [id number]-wbnn tablet (Caltrate-D3 Plus Minerals) atorvastatin 40 mg tablet 40 mg PO QPM 07/29/24 07/29/24 History Allergies Allergy/AdvReac Type Severity Reaction Status Date / Time No Known Allergies Allergy Unknown Uncoded 08/09/24 06:17 Vital Signs Vital Signs - 24 hr 08/09/24 06:18 Temperature 96.9 F L Pulse Rate 62 Respiratory Rate 16 Blood Pressure 159/64 H Pulse Oximetry 95 Oxygen Delivery Room Air Exam Const: General: comfortable and no acute distress HENMT: Face/Nose/Sinus: Normal nares present Eyes: General: appearance normal, both eyes and all related structures Neck: Neck: no JVD Resp: Auscultation: clear to auscultation bilaterally Cardio: Rate: regular rate Rhythm: regular rhythm GI: Inspection: non-distended GI Palp: Yes Soft to palpation Skin: General skin exam: normal color Neuro: General: gait normal Speech: normal speech Extrem: General: normal to inspection Psych: Mental Status: mental status grossly normal Assessment and Plan Assessment and plan (1) Colon polyp: Code(s): K63.5 - Polyp of colon Status: Acute Assessment and Plan: colonoscopy
--- NOTE | 2024-08-09 07:42 | S_PTH ---
PATIENT: Kath Luna LOC: [facility]#:[id number] AGE/SX: 69/F ROOM: RE08/09/[address]: Leonardo Bran MD : 1955 BED: DIS: 08/09/2024 SPEC #: [id number] RECD: 08/09/24 09:25 STATUS: RORY IRVING #: [id number] SEAMUS: 08/09/24 07:[address]: Leonardo Bran DEPT: [facility] Surgical RECD BY: Edy Chan ENTERED: 08/09/24 09:26 SP TYPE: Surgical OTHR DR: Queta Baranrd, PA-C Tissues: A - Colon Polypectomy B - Colon Polypectomy C - Colon Polypectomy Procedures: Hematoxylin and Eosin Stain Gross and Microscopic Level 4
[2024-08-09 07:48] VITALS: BP 102/50; PULSE 77; RESP 20; O2SAT 98
[2024-08-09 07:58] VITALS: BP 94/63; PULSE 74; RESP 23; O2SAT 98
[2024-08-09 08:06] VITALS: BP 111/65; PULSE 69; RESP 25; O2SAT 98
== END 2024-08-09 08:15 | disposition home or self-care (01) ==
PROVIDERS: PCP Physician Assistant; Referring Provider Physician Assistant; Visit Provider Internal Medicine Gastroenterology
PROC: 0DJD8ZZ Inspection of Lower Intestinal Tract, Via Natural or Artificial Opening Endoscopic (ICD-10-PCS; CPT 45378; principal; 2024-08-09 07:30)
DX: Z12.11 Encounter for screening for malignant neoplasm of colon (principal); K63.5 Polyp of colon; K57.30 Diverticulosis of large intestine without perforation or abscess without bleeding; K21.9 Gastro-esophageal reflux disease without esophagitis; J44.9 Chronic obstructive pulmonary disease, unspecified; E66.9 Obesity, unspecified; Z68.38 Body mass index [BMI] 38.0-38.9, adult; Z79.51 Long term (current) use of inhaled steroids; Z98.890 Other specified postprocedural states; Z87.891 Personal history of nicotine dependence
CPT/HCPCS: 45385; 88305; J2704; J7120

== ENCOUNTER 2024-12-28 09:18 | Outpatient (CLI) | payer MEDICARE, SELFPAY ==
--- NOTE | ~2024-12-28 | DEXA_ITS ---
Bone Density Report Name: JUNI VASQUEZ Age: 69 Sex: Female Ethnicity: White Date of : 1955 Indication: postmenopausal; screening for osteoporosis; height loss; asthma or emphysema; hysterectomy; Referring Provider: NICOLAS COLVIN Study: Bone densitometry was performed. Exam Date: December 28, 2024 Accession number: [id number] Bone Density: Region BMD T-score Z-score Classification AP Spine(L1-L4) 1.227 1.6 3.9 Normal Femoral Neck (Left) 0.854 0.0 2.0 Normal Total Hip (Left) 1.138 1.6 3.2 Normal Femoral Neck (Right) 0.805 -0.4 1.5 Normal Total Hip (Right) 1.107 1.4 3.0 Normal Total Hip Mean 1.122 1.5 3.1 Normal World Health Organization criteria for BMD impression classify patients as: Normal (T-score at or above -1.0), Osteopenia (T-score between -1.0 and -2.5), or Osteoporosis (T-score at or below -2.5). 10-year Fracture Risk: FRAX not reported because: All T-scores for Spine Total, Hip Total, Femoral Neck at or above -1.0 Previous Exams: Region Exam Age BMD T-score BMD Change BMD Change Date g/cm2 vs Baseline vs Previous AP Spine (L1-L4) 12/28/2024 69 1.227 1.6 0.062 (5.3%)# 0.029 (2.4%)* 03/05/2016 61 1.198 1.4 0.033 (2.8%)# 0.033 (2.8%)# 09/19/2011 56 1.166 1.1 Total Hip(Left) 12/28/2024 69 1.138 1.6 0.036 (3.2%)# 0.017 (1.5%)# 03/28/2019 64 1.121 1.5 0.019 (1.7%) 0.058 (5.5%)# 03/05/2016 61 1.063 1.0 -0.039 (-3.6%) -0.039 (-3.6%) 09/19/2011 56 1.102 1.3 Total Hip(Right) 12/28/2024 69 1.107 1.4 0.164 (17.4%)# 0.033 (3.0%)# 03/28/2019 64 1.074 1.1 0.131 (13.9%)* 0.036 (3.4%)# 03/05/2016 61 1.039 0.8 0.096 (10.1%)# 0.096 (10.1%)# 09/19/2011 56 0.943 0.0 *Denotes significance at 95% confidence level, LSC for AP Spine = 0.022 g/cm2, LSC for Total Hip = 0.027 g/cm2 # Denotes dissimilar scan types or analysis methods Clinical Information Provided by Patient: Has used the following medications: Vitamin D, Calcium Has the following medical conditions: Asthma or Emphysema, Hysterectomy Patient maximum height was 65.0 Menopause Age: 43 No regular weight bearing exercise Drinks caffeinated beverages Onset of menses at age 12 Number of children 2 Impression: The patient has normal bone mass. No significant bone loss was observed. Discussion: BONE DENSITY IS ABOVE THE MINIMUM DESIRABLE LEVEL AT ALL SKELETAL SITES TESTED. This patient?s bone mineral density is above the minimum desirable level (T-score -1.0 or better) at all sites measured. The patient should follow a healthful lifestyle (good nutrition with adequate calcium and vitamin D, and appropriate weight-bearing exercise). Follow-Up: Consider repeating this study in 5 years or sooner if there is some new clinical indication. Reported by: BRENDAN on 12/28/2024 10:07:00 AM. Reviewed, dictated and finalized at location A.
--- OUTSIDE RECORDS SUMMARY | 2024-12-28 10:22 | XMS_ITS | Clinical Summary ---
Author Organization [facility] [address] [facility] [address] [place] [address] Care Team Providers Care Manager Of Software Development Name Role Phone AlonzozehraQueta Primary Care Pr [...] (04/28/2019): PROCEDURE PERFORMED 04/11/2019 [place] Left hemithyroidectomy. Encounters Date Type Department Care Team Description 12/09/[address] 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 Gender Identity Not on file Sexual Orientation Not on file Obstetrics History Last Filed Vital Signs Vital Sign Reading Time Taken Comments Blood Pressure 115/65 04/11/2019 3:10 PM ICT TEACHER Pulse 81 04/11/2019 3:10 PM ICT TEACHER Temperature 36.1 C (97 F) 04/11/2019 3:40 PM ICT TEACHER Respiratory Rate 15 04/11/2019 3:10 PM ICT TEACHER Oxygen Saturation 96% 04/11/2019 3:10 PM ICT TEACHER Inhaled Oxygen Concentration - - Weight 111.1 [...] Pneumococcal vaccine 65+ (2 of 2 - PPSV23, PCV20, or PCV21) 01/30/2021 12/05/2020, 03/22/2018 Covid-19 Vaccine (5 - 2024-2 6 season) 2024 01/22/2022, 10/09/2021, 01/16/2021, Additional history exists Influenza Vaccine (#1) 2024 , 12/18/2021, 12/05/2020, Additional history exists DTaP/Tdap/Td Vaccine (2 - Td or Tdap) 04/07/2027 04/07/2017 Zoster Vaccine Completed 03/21/2020, 11/08, 03/09/2017 Insurance [facility] Address: [facility] [id number] [place] [phone] MEDICARE [employer] [facility] [employer] OPEN ACCESS [facility] MEDICARE ADVANTAGE [employer] MEDICARE Care Teams Manager Of Software Development Relationship Specialty Start Date End Date Queta Barnard PA PCP - General Physician Substance Abuse Services Director 04/15/18
== END 2024-12-28 09:19 | disposition home or self-care (01) ==
LOC: ANHFOHIMG 09:20
PROVIDERS: PCP Physician Assistant; Visit Provider Obstetrics & Gynecology
DX: Z78.0 Asymptomatic menopausal state (principal)
CPT/HCPCS: 77080